=== PATIENT | male | born 1995 | race Caucasian/White ===

== ENCOUNTER 2018-03-29 15:06 | Inpatient (IN) | payer MEDICAID ==
[~2018-03-29] VITALS: Ht 165.1 cm; Wt 63.5 kg
[2018-03-29] MEDS ORDERED: KETOROLAC TROMETHAMINE INJ 30 MG/ML VIAL ONE (15:19)
[2018-03-29] MEDS ORDERED: KETOROLAC TROMETHAMINE INJ 30 MG/ML VIAL IV ONE (15:30)
[2018-03-29] MEDS ORDERED: IV NS 0.9% 1,000 ML BAG IV ONE (15:30)
[2018-03-29 15:32] LABS: BASOPHILS # (AUTO) 0.2 /CMM (0.0-0.2); BASOPHILS % (AUTO) 0.5 % (0.0-2.0); EOSINOPHILS % (AUTO) 0.1 % (0.0-6.0); HEMATOCRIT 43 % (39-51); HEMOGLOBIN 14.7 g/dL (13.5-17.5); LYMPHOCYTES % (AUTO) 3.4 % (20.0-44.0); MEAN CORPUSCULAR HGB CONC 34 g/dl (31.0-36.0); MEAN CORPUSCULAR VOLUME 93 fL (80-96); MONOCYTES # (AUTO) 1.9 /CMM (0.1-1.30); MONOCYTES % (AUTO) 6.3 % (2.0-12.0); NEUTROPHILS # (AUTO) 26.6 /CMM (1.8-8.9); NEUTROPHILS % (AUTO) 89.7 % (43.0-81.0); PLATELET COUNT (AUTO) 351 /CMM (150-450); RED BLOOD CELL COUNT(AUTO) 4.65 MIL/uL (4.5-6.0); WHITE BLOOD COUNT (AUTO) 29.6 K/uL (4.3-11.0)
[2018-03-29 15:48] LABS: ALBUMIN 3.3 g/dL (3.4-5.0); BILIRUBIN,DIRECT 0.1 mg/dL (0.0-0.2); BILIRUBIN,TOTAL 0.5 mg/dL (0.2-1.0); CALCIUM, SERUM 8.8 mg/dL (8.5-10.1); POTASSIUM 4.1 mmol/L (3.5-5.1); TOTAL PROTEIN, SERUM 7.8 g/dL (6.4-8.2)
[2018-03-29] MEDS ORDERED: PIPERACILLIN /TAZOBACTAM 3.375 G in IV D5W 50 ML IV ONE (16:00)
[2018-03-29] MEDS ORDERED: IOHEXOL-300 100 ML VIAL IV ONE (16:08)
[2018-03-29] MEDS ORDERED: IV NS 0.9% 250 ML IV ONE (16:08)
--- NOTE | 2018-03-29 16:11 | NUR ---
TODD FROM THE STREETS FOR RLQ ABDOMINAL PAIN SINCE THIS AM. PT AAOX4, VSS. DENIES N/V/D @ THIS TIME. PT SEEN & EVAL'D BY DR. HOGAN. MEDICATED FOR PAIN & WILL CONT TO MONITOR.
--- NOTE | 2018-03-29 17:00 | NUR ---
PT BACK FROM CT. STARTED IV ABX, PT ELZA WELL. PT STABLE, NAD NOTED @ THIS TIME.
[2018-03-29] MEDS ORDERED: Z GUARD REMEDY 2 OZ OINT TP PRN (18:00)
[2018-03-29] MEDS ORDERED: PIPERACILLIN /TAZOBACTAM 4.5 G in IV D5W 50 ML IV SCH (18:00)
[2018-03-29] MEDS ORDERED: MAGNESIUM HYDROXIDE 30 ML UDC PO PRN (18:00)
[2018-03-29] MEDS ORDERED: MAG HYDROX/AL HYDROX/SIMETH 30 ML UDC PO PRN (18:00)
[2018-03-29] MEDS ORDERED: ONDANSETRON HCL/PF 4 MG/2 ML VIAL IVP PRN (18:00)
[2018-03-29] MEDS ORDERED: ZOLPIDEM TARTRATE 5 MG TABLET PO PRN (18:00)
[2018-03-29 18:12] LABS: APPEARANCE,URINE Slightly Cloudy (CLEAR); BILIRUBIN,URINE Negative (NEGATIVE); BLOOD, URINE Trace-intact Ery/uL (NEGATIVE); COLOR,URINE Yellow (YELLOW); KETONES,URINE Negative (NEGATIVE); LEUKOCYTE ESTERASE ,URINE Trace (NEGATIVE); NITRITE, URINE Negative (NEGATIVE); PH,URINE 8.5 (5.0-8.0); PROTEIN,URINE 30 mg/dl (NEGATIVE); UGLUCOSE Negative (NEGATIVE)
--- NOTE | 2018-03-29 18:14 | NUR ---
Dr. Rom Barrientos [phone] CALLED
[2018-03-29 18:24] LABS: BACTERIA,URINE Rare /HPF (None Seen); RBC,URINE 0-2 /HPF (0-2); SQUAMOUS EPITHELIAL CELL,UR Few /HPF (None Seen); WBC,URINE TOO NUMEROUS TO COUN /HPF (0-3)
--- NOTE | 2018-03-29 18:50 | NUR ---
ARCH PAD CEMENTER NOTE RECEIVED REPORT FROM SHRUTHI ITM. PATIENT ARRIVED VIA WHEELCHAIR. PATIENT AMBULATORY WITH STEADY GAIT. NO BELONGINGS WITH PATIENT. MOTHER AT BEDSIDE. IV ON LEFT AC 20G INTACT AND PATENT NO REDNESS OR SWELLING NOTED. ABLE TO COMMUNICATE NEEDS. NO KNOWN ALLERGIES. FULL CODE NO ISOLATION. CALL LIGHT WITHIN REACH. MRSA OBTAINED IN ER. NO SIN ISSUES PRESENT AT THIS TIME. WILL ENDORSE TO CLINICAL AIDE NURSE FOR WOODROW
[2018-03-29 19:15] VITALS: BP 109/69
--- NOTE | 2018-03-29 19:15 | NUR ---
RN MS ADMITTING OPENING NOTES RECEIVED PATIENT IN BED, AWAKE ALERT AND ORIENTED X3, ABLE TO MAKE SIMPLE NEEDS KNOWN, APPEARS SLEEPY BUT EASILY AROUSABLE, RESPIRATIONS EVEN AND UNLABORED WITH EQUAL RISE AND FALL OF CHEST, LEFT IV AC SITE #20 G INTACT AND PATENT, NO REDNESS, NO INFILTRATION PRESENT, SAFETY PRECAUTIONS IN PLACE, LOW BED AND LOCKED, BED ALARM IN PLACE, TOILETING OFFERED, PATIENT IS NPO AT THIS TIME, ORIENTED TO STAFF AND CALL LIGHT AND KEPT WITHIN REACH, ALL NEEDS ATTENDED AT THIS TIME, WILL CONTINUE TO MONITOR.
[2018-03-29] MEDS: HYDROCODONE/APAP 5/325MG 1 EACH TABLET PO PRN (19:43)
--- NOTE | 2018-03-29 19:43 | NUR ---
SHRUTHI MS NOTES PATIENT COMPLAINT OF PAIN TO LEFT GROIN AREA,08/05 REQUESTING FOR PAIN MEDICATION VITAL SIGNS TAKEN 109/69,87,16,99% RA NORCO 5-325MG WILL CONTINUE TO MONITOR. Addendum: 03/29/18 at 2228 by JONES LOBO RN NORCO PRN WAS GIVEN
[2018-03-29 20:00] VITALS: BP 109/69
[2018-03-29] MEDS: IV NS 0.9% 1,000 ML IV PRN (20:04)
[2018-03-29] MEDS: PIPERACILLIN /TAZOBACTAM 3.375 G in IV D5W 100 ML IV SCH (20:06)
[2018-03-29] MEDS: ACETAMINOPHEN 325 MG TABLET PO PRN (20:54)
--- NOTE | 2018-03-29 20:54 | NUR ---
RN MS NOTES NOTED PATIENT WITH FEVER OF 100.8 TYLENOL PRN GIVEN ORDERED, COOLING MEASURES PROVIDED WILL CONTINUE TO MONITOR FOR EFFECTIVENESS.
--- NOTE | 2018-03-29 21:30 | NUR ---
RN MS NOTES SEEN AND EVALUATED BY WITH RECOMMENDATION FOR UROLOGIST CASE.
--- NOTE | 2018-03-29 21:47 | NUR ---
RN MS NOTES RECEIVED CALL FROM DR. EDOUARD WITH NEW ORDER FOR IV LEVAQUIN 500MG DAILY 1ST DOSE STAT MADE AWARE ZOSYN WILL INFUSE FOR 4 HOURS OKAY TO START LEVAQUIN AFTER. MADE AWARE OF FEVER OF 100.8 WITH TYLENOL GIVEN PER UROLOGIST WAS CALLED FOR PATIENT TO BE SEEN.
[2018-03-29] MEDS ORDERED: LEVOFLOXACIN 500 MG /D5W 100ML 500 MG in PREMIX 1 EA IV SCH (22:00)
--- NOTE | 2018-03-29 22:00 | NUR ---
RN MS NOTES SEEN BY UROLOGIST DR. ROBERTS WITH NEW ORDERS FOR TORADOL PER MD NO SURGERY NEEDED WILL FOLLOW ORDERED
[2018-03-29] MEDS: KETOROLAC TROMETHAMINE INJ 30 MG/ML VIAL IV SCH (23:00)
[2018-03-29] MEDS ORDERED: LEVOFLOXACIN 500 MG /D5W 100ML 100 ML IV ONE (23:10)
[2018-03-30] MEDS: LEVOFLOXACIN 500 MG /D5W 100ML 500 MG in PREMIX 1 EA IV SCH (00:18)
[2018-03-30] MEDS: PIPERACILLIN /TAZOBACTAM 3.375 G in IV D5W 100 ML IV SCH ×3 (04:30→20:57)
[2018-03-30] MEDS: KETOROLAC TROMETHAMINE INJ 30 MG/ML VIAL IV SCH ×4 (04:30→21:08)
--- NOTE | 2018-03-30 06:32 | NUR ---
SHRUTHI MS CLOSING NOTES PATIENT IN BED, AWAKE ALERT AND ORIENTED X3, ABLE TO MAKE SIMPLE NEEDS KNOWN, APPEARS SLEEPY BUT EASILY AROUSABLE, RESPIRATIONS EVEN AND UNLABORED WITH EQUAL RISE AND FALL OF CHEST, LEFT IV AC SITE #20 G INTACT AND PATENT, NO REDNESS, NO INFILTRATION PRESENT,ANTIBIOTIC RUNNING FOR 4 HOURS ORDERED. SAFETY PRECAUTIONS IN PLACE, LOW BED AND LOCKED, BED ALARM IN PLACE, TOILETING OFFERED, URINAL OFFERED, PATIENT IS NPO AT THIS TIME, CALL LIGHT KEPT WITHIN REACH, ALL NEEDS ATTENDED AT THIS TIME, WILL CONTINUE TO MONITOR AND ENDORSE TO NEXT SHIFT. Addendum: 03/30/18 at 0636 by JONES LOBO RN PATIENT IS AFEBRILE AT THIS TIME, 98.1
[2018-03-30 06:49] LABS: BASOPHILS # (AUTO) 0.2 /CMM (0.0-0.2); BASOPHILS % (AUTO) 0.5 % (0.0-2.0); EOSINOPHILS % (AUTO) 0.1 % (0.0-6.0); HEMATOCRIT 42 % (39-51); HEMOGLOBIN 13.8 g/dL (13.5-17.5); LYMPHOCYTES # (AUTO) 1.4 /CMM (0.8-4.8); LYMPHOCYTES % (AUTO) 3.9 % (20.0-44.0); MEAN CORPUSCULAR HGB CONC 33 g/dl (31.0-36.0); MEAN CORPUSCULAR VOLUME 94 fL (80-96); MONOCYTES # (AUTO) 2.6 /CMM (0.1-1.30); MONOCYTES % (AUTO) 7.2 % (2.0-12.0); NEUTROPHILS # (AUTO) 31.8 /CMM (1.8-8.9); NEUTROPHILS % (AUTO) 88.3 % (43.0-81.0); PLATELET COUNT (AUTO) 312 /CMM (150-450); RED BLOOD CELL COUNT(AUTO) 4.45 MIL/uL (4.5-6.0)
[2018-03-30 07:08] LABS: ALBUMIN 2.7 g/dL (3.4-5.0); BILIRUBIN,TOTAL 1.1 mg/dL (0.2-1.0); CALCIUM, SERUM 8.4 mg/dL (8.5-10.1); CREATININE 0.8 mg/dL (0.6-1.3); MAGNESIUM 1.6 mg/dL (1.8-2.4); PHOSPHORUS 3.8 mg/dL (2.5-4.9); POTASSIUM 3.7 mmol/L (3.5-5.1); TOTAL PROTEIN, SERUM 7.3 g/dL (6.4-8.2)
--- NOTE | 2018-03-30 07:18 | NUR ---
rn ms notes received call from lab wbc 36 patient is on antibiotics at this time. will edorse to next shift.
[2018-03-30 07:55] LABS: LYMPHOCYTES % (MANUAL) 4 % (16-48); MONOCYTES % (MANUAL) 9 % (0-11.0); NEUTROPHILS % (MANUAL) 87 (42-76)
[2018-03-30 07:59] VITALS: BP 117/67
--- NOTE | 2018-03-30 08:00 | NUR ---
RN NOTES RECEIVED PATIENT IN THE BED 22 Y/OLD MALE ON NPO. PATIENT A/O X3/4 RESTING. PATIENT HAS NO ACUTE RESPIRATORY DISTRESS. ENCOURAGED TO EXPRESS FEELINGS AND CONCERNS. PATIENT REFUSED PAIN AT THIS TIME. V/S TAKEN STABLE. PATIENT TURN AND REPOSTION SELF IN THE BED. PATIENT HAS SWOLLEN SCROTUM, NO REDNESS. INFUSING NS AT LEFT AC AT 125 ML/HR INTACT. PATIENT WAS USING URINAL. CALL LIGHT WITHIN TO REACH. SAFETY PRECAUTION MAINTAINED ALL THE TIME.
[2018-03-30 08:19] VITALS: BP 117/67
--- NOTE | 2018-03-30 08:20 | NUR ---
WOUND CARE CONSULT: PT PRESENTS CONTINENT AND INDEPENDENT WITH BED MOBILITY. DRY SKIN NOTED TO PLANTAR FEET. WILL SEE PRN.
--- NOTE | 2018-03-30 10:00 | NUR ---
RN NOTES PATIENT WITH PT WALKING IN THE HALLWAY STABLE.
[2018-03-30] MEDS: Magnesium 1GM/D5W 100ML PREMIX 100 ML IV SCH ×2 (11:14→12:03)
--- NOTE | 2018-03-30 11:33 | NUR ---
Social service consult requested by Dr. Barclay for homelessness. Pt. is a 22 year old male who was admitted to [facility] for abdominal pain. SW met with pt. bedside. Pt. was lying down with his eyes closed. SW had to prompt pt. several times before he opened his eyes and spoke to SW. Pt. states, he is homeless by choice. Pt. states he has been homeless for 2 months. Pt. alternates in between living on the streets and living in his mom's house in [place]. Pt's emergency contact is his mother Zeenat Dutta . Pt. informed SW that his mother is aware of his hospitalization. Pt. is a methamphetamine user. Pt. last used methamphetamines a day ago. Pt. uses methamphetamines a couple times per week. Pt. also smokes marijuana and last used marijuana 2 days ago. [facility] offered pt. assisted placement, however pt. declined. Pt. is willing to accept winter assisted placement referral. SW to give pt. winter assisted referral prior to discharge. No other social service needs are required at this time. SW is available if need. [facility] updated SHRUTHI Chang regarding pt's discharge plan.
[2018-03-30] MEDS: HYDROCODONE/APAP 5/325MG 1 EACH TABLET PO PRN (12:05)
--- NOTE | 2018-03-30 12:05 | NUR ---
RN NOTES ADMINISTERED NARCO 5/325 MG PO PRN FOR PAIN 11/04 PER PATIENT REQUEST FOR PERINEAL AREA, CALL LIGHT WITHIN TO REACH, SAFETY PRECAUTION MAINTAINED ALL THE TIME.
--- NOTE | 2018-03-30 13:05 | NUR ---
RN NOTES ADMINISTERED NARCO 5/325 MG PO PRN FOR SCROTUM PAIN 11/04 PER PATIENT REQUEST, V/S TAKEN STABLE BP-107/66, P-96, ENCOURAGED TO INCREASE FLUID INTAKE. CONTINUED MONITORING.
--- NOTE | 2018-03-30 14:48 | NUR ---
[facility] met with pt. bedside and gave him list of [id number] [facility]. Homeless patient waiver form to be signed by pt. upon discharge.
[2018-03-30 16:27] VITALS: BP 107/66
[2018-03-30] MEDS ORDERED: FEE PK DOSING 1 MIN EA MC ONE (16:46)
[2018-03-30] MEDS: ENSURE ENLIVE 237 ML LIQUID (VANILLA) PO SCH ×2 (17:24→17:51)
[2018-03-30] MEDS: VANCOMYCIN 1.5 GM in IV D5W 500 ML IV SCH (17:24)
--- NOTE | 2018-03-30 18:30 | NUR ---
RN NOTES PATIENT STABLE EATING. V/S STABLE, MEDICATION WERE ADMINISTERED FOR PAIN EFFECTIVE. MOTHER NEXT TO THE BED. PATIENT TURN AND REPOSTION IN THE BED, USING URINAL. CALL LIGHT WITHIN TO REACH. SAFETY PRECAUTION MAINTAINED ALL THE TIME. ENDORSED ONCOMING NURSE FOR PLAN OF CARE.
--- NOTE | 2018-03-30 19:05 | NUR ---
RN MS OPENING NOTES RECEIVED PATIENT IN BED, AWAKE ALERT AND ORIENTED X3, ABLE TO MAKE SIMPLE NEEDS KNOWN, APPEARS SLEEPY BUT EASILY AROUSABLE, RESPIRATIONS EVEN AND UNLABORED WITH EQUAL RISE AND FALL OF CHEST, LEFT IV AC SITE #20 G INTACT AND PATENT IVF RUNNING ORDERED , NO REDNESS, NO INFILTRATION PRESENT,ASKED PATIENT IF WANTED FLU VACCINE REFUSED. SAFETY PRECAUTIONS IN PLACE, LOW BED AND LOCKED, BED ALARM IN PLACE, TOILETING OFFERED, URINAL OFFERED, FLUIDS OFFERED, CALL LIGHT KEPT WITHIN REACH, ORIENTED TO STAFF ,ALL NEEDS ATTENDED AT THIS TIME, BED ALARM IN PLACE BED LOW AND LOCKED ,WILL CONTINUE TO MONITOR.
[2018-03-30 20:00] VITALS: BP 109/58
[2018-03-30 20:54] VITALS: BP 109/58
--- NOTE | 2018-03-30 21:49 | NUR ---
RN NOTES SEEN AND EVALUATED BY DR. ROBERTS UROLOGIST NOW NEW ORDERS AT THIS TIME, [place] CLEARED FOR DISCHARGE WITH ATB , NO SURGICAL INTERVENTION NEEDED AT THIS TIME .
[2018-03-31] MEDS: LEVOFLOXACIN 500 MG /D5W 100ML 500 MG in PREMIX 1 EA IV SCH (01:03)
[2018-03-31] MEDS: VANCOMYCIN 1.5 GM in IV D5W 500 ML IV SCH ×2 (02:51→09:00)
--- NOTE | 2018-03-31 02:52 | NUR ---
RN MS NOTES will run VANCOMYCIN atb at this time, unable to give as schedule due to levaquin scheduled at the same time and to be ran for 1hr and 30 mins
[2018-03-31] MEDS: KETOROLAC TROMETHAMINE INJ 30 MG/ML VIAL IV SCH ×4 (04:00→22:21)
--- NOTE | 2018-03-31 04:00 | NUR ---
rn ms notes patient denies any pain or discomfort at this time
[2018-03-31] MEDS: PIPERACILLIN /TAZOBACTAM 3.375 G in IV D5W 100 ML IV SCH ×3 (05:03→21:30)
--- NOTE | 2018-03-31 06:49 | NUR ---
RN MS CLOSING NOTES PATIENT IN BED, ALERT AND ORIENTED X3, ABLE TO MAKE SIMPLE NEEDS KNOWN, APPEARS SLEEPY BUT EASILY AROUSABLE, RESPIRATIONS EVEN AND UNLABORED WITH EQUAL RISE AND FALL OF CHEST, LEFT IV AC SITE #20 G INTACT AND PATENT IVF RUNNING ORDERED , NO REDNESS, NO INFILTRATION PRESENT,SAFETY PRECAUTIONS IN PLACE, LOW BED AND LOCKED, BED ALARM IN PLACE, TOILETING OFFERED, URINAL OFFERED, FLUIDS OFFERED, CALL LIGHT KEPT WITHIN REACH, ZOSYN ATB IV IS CURRENTLY RUNNING AT THIS TIME TO RUN FOR 4 HOURS FROM START TIME,ALL NEEDS ATTENDED AT THIS TIME, BED ALARM IN PLACE BED LOW AND LOCKED ,WILL CONTINUE TO MONITOR AND ENDORSE TO NEXT SHIFT , NO FEVER THROUGHOUT SHIFT.
--- NOTE | 2018-03-31 07:12 | NUR ---
RN MS NOTES PER LAB WILL RETURN FOR LAB VANCO TROUGH AT 0800
[2018-03-31 08:00] VITALS: BP 120/67
--- NOTE | 2018-03-31 08:00 | NUR ---
MS RN NOTES RECEIVED PATIENT IN STABLE CONDITION, IN NO APPARENT DISTRESS, BESIDE RAILS ARE UP X2, BED IS LOCKED AND IN LOWEST POSITION, IV SITE IS PATENT AND SECURE, WILL CONTINUE TO MONITOR PATIENT. CHANGED PRIMARY NS IV TUBING.
[2018-03-31 08:13] LABS: BASOPHILS # (AUTO) 0.1 /CMM (0.0-0.2); BASOPHILS % (AUTO) 0.3 % (0.0-2.0); EOSINOPHILS % (AUTO) 0.3 % (0.0-6.0); HEMATOCRIT 39 % (39-51); HEMOGLOBIN 12.9 g/dL (13.5-17.5); LYMPHOCYTES % (AUTO) 2.8 % (20.0-44.0); MEAN CORPUSCULAR HGB CONC 33 g/dl (31.0-36.0); MEAN CORPUSCULAR VOLUME 94 fL (80-96); MONOCYTES # (AUTO) 1.9 /CMM (0.1-1.30); MONOCYTES % (AUTO) 5.6 % (2.0-12.0); NEUTROPHILS # (AUTO) 30.6 /CMM (1.8-8.9); PLATELET COUNT (AUTO) 297 /CMM (150-450); RED BLOOD CELL COUNT(AUTO) 4.13 MIL/uL (4.5-6.0)
[2018-03-31 08:25] LABS: CALCIUM, SERUM 8.3 mg/dL (8.5-10.1); CREATININE 1.4 mg/dL (0.6-1.3); MAGNESIUM 1.8 mg/dL (1.8-2.4); PHOSPHORUS 3.1 mg/dL (2.5-4.9); POTASSIUM 3.8 mmol/L (3.5-5.1)
[2018-03-31 08:28] LABS: WHITE BLOOD COUNT (AUTO) 33.6 K/uL (4.3-11.0)
[2018-03-31] MEDS: IV NS 0.9% 1,000 ML IV PRN (08:56)
--- NOTE | 2018-03-31 09:15 | NUR ---
WITHHELD VANCOMYCIN ADMINISTRATION THIS MORNING 0900 03/31/18 DUE TO VANCO THROUGH LEVEL 30.
[2018-03-31] MEDS: ENSURE ENLIVE 237 ML LIQUID (VANILLA) PO SCH ×3 (09:19→16:21)
[2018-03-31 11:01] LABS: BAND % (MANUAL) 3 % (0.0-5.0); LYMPHOCYTES % (MANUAL) 3 % (16-48); METAMYELOCYTES % 2 % (0-0); MONOCYTES % (MANUAL) 4 % (0-11.0); MYELOCYTES % 2 % (0-0); NEUTROPHILS % (MANUAL) 86 (42-76)
[2018-03-31 16:00] VITALS: BP 117/64
[2018-03-31] MEDS: LACTOBACILLUS RHAMNOSUS GG 1 EACH CAP.SPRINK PO SCH (16:20)
--- NOTE | 2018-03-31 18:27 | NUR ---
RN CLOSING NOTES PATIENT IS IN STABLE CONDITION, NO APPARENT DISTRESS, BED SIDE RAILS ARE UP X2, BED IS LOCKED AND LOWERED, CALL LIGHT IS WITHIN REACH, ALL NEEDS WERE MET, IV LINE IS INTACT AND PATENT, ENDORSING CARE TO SENIOR TECHNICAL BUSINESS ANALYST NURSE FOR CONTINUATION OF CARE.
--- NOTE | 2018-03-31 19:45 | NUR ---
RN OPENING NOTES RECEIVED REPORT FROM DAYSHIFT RN SILVIO. FOUND Pt ASLEEP, RESTING IN BED; MOTHER VISITING AT BEDSIDE. NO S/S OF ACUTE DISTRESS OR SOB NOTED. Pt IS A/OX3, VERBAL, ABLE TO MAKE NEEDS KNOWN. IV ACCESS ON LAC #20G, IVF NS @125ML/HR. SAFETY MEASURES IN PLACE. BED LOW, LOCKED, HOB ELEVATED, SIDE RAILS UP, CALL LIGHT AND BEDSIDE TABLE WITHIN REACH. WILL CONTINUE TO MONITOR Pt THROUGHOUT THE NIGHT FOR SAFETY.
[2018-03-31 19:51] VITALS: BP 108/52
[2018-03-31 20:00] VITALS: BP 108/52
[2018-03-31] MEDS: VANCOMYCIN HCL 0.75 GM in IV D5W 250 ML IV SCH (20:04)
[2018-03-31] MEDS ORDERED: VANCOMYCIN 1 GM in IV D5W 250 ML IV SCH (21:00)
[2018-04-01] MEDS: LEVOFLOXACIN 500 MG /D5W 100ML 500 MG in PREMIX 1 EA IV SCH (00:59)
[2018-04-01] MEDS: VANCOMYCIN HCL 0.75 GM in IV D5W 250 ML IV SCH (04:04)
[2018-04-01] MEDS ORDERED: KETOROLAC TROMETHAMINE INJ 30 MG/ML VIAL ONE (05:05)
[2018-04-01] MEDS: PIPERACILLIN /TAZOBACTAM 3.375 G in IV D5W 100 ML IV SCH ×3 (05:34→20:32)
[2018-04-01] MEDS: KETOROLAC TROMETHAMINE INJ 30 MG/ML VIAL IV SCH (05:40)
--- NOTE | 2018-04-01 06:47 | NUR ---
RN CLOSING NOTES NO SIGNIFICANT CHANGES IN Pt's CONDITION. Pt REMAINS STABLE PER BASELINE. Pt IS ASLEEP AT THIS TIME. RESPIRATIONS EVEN AND UNLABORED. NO S/S OF ACUTE DISTRESS OR SOB NOTED DURING THE NIGHT. ALL NEEDS MET AND ATTENDED TO. ALL ORDERED MEDS GIVEN. SAFETY MEASURES IN PLACE. WILL ENDORSE TO DAYSHIFT RN FOR Pt's WOODROW.
[2018-04-01 07:14] LABS: BASOPHILS # (AUTO) 0.1 /CMM (0.0-0.2); BASOPHILS % (AUTO) 0.2 % (0.0-2.0); EOSINOPHILS % (AUTO) 0.2 % (0.0-6.0); HEMATOCRIT 38 % (39-51); HEMOGLOBIN 12.6 g/dL (13.5-17.5); LYMPHOCYTES # (AUTO) 1.1 /CMM (0.8-4.8); LYMPHOCYTES % (AUTO) 3.3 % (20.0-44.0); MEAN CORPUSCULAR HGB CONC 33 g/dl (31.0-36.0); MEAN CORPUSCULAR VOLUME 94 fL (80-96); MONOCYTES # (AUTO) 2.3 /CMM (0.1-1.30); MONOCYTES % (AUTO) 7.1 % (2.0-12.0); NEUTROPHILS # (AUTO) 28.2 /CMM (1.8-8.9); NEUTROPHILS % (AUTO) 89.2 % (43.0-81.0); PLATELET COUNT (AUTO) 316 /CMM (150-450); RED BLOOD CELL COUNT(AUTO) 4.04 MIL/uL (4.5-6.0)
--- NOTE | 2018-04-01 07:15 | NUR ---
RN OPENING NOTES RECEIVED PATIENT IN BED RESTING. A/OX4, ABLE TO MAKE NEEDS KNOWN. NO ACUTE DISTRESS, NO SOB. DENIED PAIN OR DISCOMFORT AT THIS TIME. IV ACCESS INTACT AND PATENT. KEPT PATIENT SAFE AND COMFORTABLE. BED IN LOW/LOCKED POSITION, SIDERAILS UPX2, CALL LIGHT IN REACH. WILL CONTINUE TO MONITOR ACCORDINGLY.
[2018-04-01 07:20] LABS: CALCIUM, SERUM 8.5 mg/dL (8.5-10.1); CREATININE 2.1 mg/dL (0.6-1.3); POTASSIUM 3.9 mmol/L (3.5-5.1)
[2018-04-01 07:22] LABS: WHITE BLOOD COUNT (AUTO) 31.6 K/uL (4.3-11.0)
[2018-04-01 08:00] VITALS: BP 101/63
[2018-04-01] MEDS: LACTOBACILLUS RHAMNOSUS GG 1 EACH CAP.SPRINK PO SCH ×2 (08:51→17:23)
[2018-04-01] MEDS: ENSURE ENLIVE 237 ML LIQUID (VANILLA) PO SCH ×3 (08:52→17:23)
[2018-04-01 09:19] LABS: LYMPHOCYTES % (MANUAL) 1 % (16-48); MONOCYTES % (MANUAL) 4 % (0-11.0); NEUTROPHILS % (MANUAL) 95 (42-76)
[2018-04-01] MEDS: IV NS 0.9% 1,000 ML IV PRN (13:56)
[2018-04-01 16:00] VITALS: BP 136/57
--- NOTE | 2018-04-01 19:30 | NUR ---
RN CLOSING NOTES PATIENT IN STABLE CONDITION. ALL NEEDS ATTENDED AND PROVIDED. ALL DUE MEDICATIONS ADMINISTERED ORDERED. KEPT PATIENT SAFE AND COMFORTABLE. BED IN LOW/LOCKED POSITION, SIDERAILS UPX2, CALL LLIGHTG IN REACH. ENDORSED TO SHRUTHI PAIGE FOR WOODROW.
--- NOTE | 2018-04-01 19:58 | NUR ---
RN OPENING NOTES RECEIVED REPORT FROM DAYSHIFT RN EARNEST. FOUND Pt ASLEEP, EASILY AWAKENED BY NAME. NO S/S OF ACUTE DISTRESS OR SOB NOTED. RESPIRATIONS EVEN AND UNLABORED. Pt IS A/OX3, VERBAL, ABLE TO MAKE NEEDS KNOWN. IV ACCESS ON LAC #20G. SAFETY MEASURES IN PLACE. BED LOW, LOCKED, HOB ELEVATED, SIDE RAILS UP, CALL LIGHT AND BEDSIDE TABLE WITHIN REACH. WILL CONTINUE TO MONITOR Pt THROUGHOUT THE NIGHT FOR SAFETY.
[2018-04-01 20:00] VITALS: BP 100/49
[2018-04-01] MEDS: ACETAMINOPHEN 325 MG TABLET PO PRN (20:32)
--- NOTE | 2018-04-01 20:50 | NUR ---
RN NOTES ADMINISTERED TYLENOL 650MG DUE TO TEMP OF 100.2F. ALSO APPLIED ICE PACKS UNDER Pt's UNDERARMS FOR COOLING MEASURES. WILL RECHECK TEMP.
--- NOTE | 2018-04-01 21:53 | NUR ---
RN NOTES RECHECKED VS: BP 101/58, HR 91, T 99.4F, R 18
[2018-04-01 21:54] VITALS: BP 101/58
[2018-04-02] MEDS: LEVOFLOXACIN 500 MG /D5W 100ML 500 MG in PREMIX 1 EA IV SCH (00:37)
[2018-04-02] MEDS: PIPERACILLIN /TAZOBACTAM 3.375 G in IV D5W 100 ML IV SCH ×3 (04:37→20:58)
--- NOTE | 2018-04-02 04:54 | NUR ---
RN NOTES RECHECKED TEMP: ORAL 97.8F
[2018-04-02 06:40] LABS: CALCIUM, SERUM 8.5 mg/dL (8.5-10.1); CREATININE 2.6 mg/dL (0.6-1.3); POTASSIUM 4.2 mmol/L (3.5-5.1)
--- NOTE | 2018-04-02 07:00 | NUR ---
MSRN. PT RECEIVED A&0X3, RESTING IN BED AND EASILY AWOKEN BY NAME. PT TOLERATING ROOM AIR WITHOUT DISTRESS, DENIES PAIN. 1ST CONTACT WITH PT BUT REMAINS WITH SCROTAL EDEMA PRESENT. PT WITH IVC INTACT AND OPERATIONAL. PT BRIEFED ON POC AND IS WITHOUT CONCERN OR COMPLAINT AT THIS TIME. BED IN LOWEST LOCKED POSITION WITH HANDRAILSX2 AND CALL DANIELLE WITHIN REACH. WILL CONTINUE POC.
[2018-04-02 08:00] VITALS: BP 131/61
[2018-04-02] MEDS: LACTOBACILLUS RHAMNOSUS GG 1 EACH CAP.SPRINK PO SCH ×2 (08:13→16:11)
[2018-04-02] MEDS: ENSURE ENLIVE 237 ML LIQUID (VANILLA) PO SCH ×3 (08:14→17:00)
[2018-04-02 11:44] LABS: BASOPHILS # (AUTO) 0.1 /CMM (0.0-0.2); BASOPHILS % (AUTO) 0.5 % (0.0-2.0); EOSINOPHILS % (AUTO) 0.3 % (0.0-6.0); HEMATOCRIT 38 % (39-51); HEMOGLOBIN 12.5 g/dL (13.5-17.5); LYMPHOCYTES % (AUTO) 3.7 % (20.0-44.0); MEAN CORPUSCULAR HGB CONC 33 g/dl (31.0-36.0); MEAN CORPUSCULAR VOLUME 95 fL (80-96); MONOCYTES # (AUTO) 2.2 /CMM (0.1-1.30); MONOCYTES % (AUTO) 8.3 % (2.0-12.0); NEUTROPHILS # (AUTO) 23.5 /CMM (1.8-8.9); NEUTROPHILS % (AUTO) 87.2 % (43.0-81.0); PLATELET COUNT (AUTO) 352 /CMM (150-450); RED BLOOD CELL COUNT(AUTO) 4.03 MIL/uL (4.5-6.0)
[2018-04-02] MEDS: IV NS 0.9% 1,000 ML IV PRN (12:34)
[2018-04-02 12:46] LABS: BAND % (MANUAL) 1 % (0.0-5.0); LYMPHOCYTES % (MANUAL) 5 % (16-48); MONOCYTES % (MANUAL) 7 % (0-11.0); NEUTROPHILS % (MANUAL) 87 (42-76)
[2018-04-02 16:00] VITALS: BP 114/63
[2018-04-02] MEDS: ACETAMINOPHEN 325 MG TABLET PO PRN (16:11)
--- NOTE | 2018-04-02 18:46 | NUR ---
MSRN. PT REMAINS A&0X3, RESTING IN BED. PT TOLERATING ROOM AIR WITHOUT DISTRESS, DENIES PAIN. SCROTUM REMAINS WITH MINOR EDEMA PRESENT. PT A FEBRILE A THIS TIME POST TYLENOL. PT WITH NEW IVC INTACT AND OPERATIONAL WITH IVF AND IVAB PER RX. PT REMAINS WITHOUT CONCERN OR COMPLAINT AT THIS TIME. BED IN LOWEST LOCKED POSITION WITH HANDRAILSX2 AND CALL DANIELLE WITHIN REACH. WILL ENDORSE TO NIGHT NURSE AT BEDSIDE FOR WOODROW.
[2018-04-02 20:00] VITALS: BP 111/54
[2018-04-03] MEDS: PIPERACILLIN /TAZOBACTAM 3.375 G in IV D5W 100 ML IV SCH ×3 (04:47→21:15)
--- NOTE | 2018-04-03 06:28 | NUR ---
MS RN NOTES AWAKE & RESPONSIVE. NOT IN ANY DISTRESS. NO SOB NOTED. DENIES ANY PAIN OR DISCOMFORT AT THIS TIME. WITH IVF INFUSING WELL. MONITORED ACCORDINGLY. CALL LIGHT WITHIN REACH. BED IN LOWEST POSITION. SR UP X 2 FOR SAFETY. WILL ENDORSE TO NEXT SHIFT.
[2018-04-03 07:05] LABS: BASOPHILS # (AUTO) 0.1 /CMM (0.0-0.2); BASOPHILS % (AUTO) 0.3 % (0.0-2.0); EOSINOPHILS % (AUTO) 0.3 % (0.0-6.0); HEMATOCRIT 37 % (39-51); HEMOGLOBIN 12.3 g/dL (13.5-17.5); LYMPHOCYTES % (AUTO) 4.7 % (20.0-44.0); MEAN CORPUSCULAR HGB CONC 33 g/dl (31.0-36.0); MEAN CORPUSCULAR VOLUME 94 fL (80-96); MONOCYTES # (AUTO) 2.4 /CMM (0.1-1.30); NEUTROPHILS # (AUTO) 17.9 /CMM (1.8-8.9); NEUTROPHILS % (AUTO) 83.7 % (43.0-81.0); PLATELET COUNT (AUTO) 371 /CMM (150-450); RED BLOOD CELL COUNT(AUTO) 3.99 MIL/uL (4.5-6.0); WHITE BLOOD COUNT (AUTO) 21.4 K/uL (4.3-11.0)
--- NOTE | 2018-04-03 07:15 | NUR ---
MSRN. PT RECEIVED A&0X3, RESTING IN BED WITH T.V. PT TOLERATING ROOM AIR WITHOUT DISTRESS, DENIES PAIN. 1ST CONTACT WITH PT BUT REMAINS WITH SCROTAL EDEMA PRESENT. PT WITH IVC INTACT AND OPERATIONAL. PT BRIEFED ON POC AND IS WITHOUT CONCERN OR COMPLAINT AT THIS TIME. BED IN LOWEST LOCKED POSITION WITH HANDRAILSX2 AND CALL DANIELLE WITHIN REACH. WILL CONTINUE POC.
[2018-04-03 07:22] LABS: CALCIUM, SERUM 8.6 mg/dL (8.5-10.1); CREATININE 2.4 mg/dL (0.6-1.3); POTASSIUM 4.7 mmol/L (3.5-5.1)
[2018-04-03 08:00] VITALS: BP 107/59
[2018-04-03] MEDS: LACTOBACILLUS RHAMNOSUS GG 1 EACH CAP.SPRINK PO SCH ×2 (08:53→16:50)
[2018-04-03] MEDS: ENSURE ENLIVE 237 ML LIQUID (VANILLA) PO SCH ×3 (08:56→17:08)
[2018-04-03] MEDS: IV NS 0.9% 1,000 ML IV PRN ×2 (12:36→21:25)
[2018-04-03 12:52] LABS: APPEARANCE,URINE CLEAR (CLEAR); BILIRUBIN,URINE NEGATIVE (NEGATIVE); BLOOD, URINE NEGATIVE Ery/uL (NEGATIVE); COLOR,URINE YELLOW (YELLOW); KETONES,URINE NEGATIVE (NEGATIVE); LEUKOCYTE ESTERASE ,URINE NEGATIVE (NEGATIVE); NITRITE, URINE NEGATIVE (NEGATIVE); PROTEIN,URINE TRACE mg/dl (NEGATIVE); UGLUCOSE NEGATIVE (NEGATIVE); UROBILINOGEN,URINE 0.2 EU/dL (0.2)
[2018-04-03 13:08] LABS: BACTERIA,URINE None seen /HPF (None Seen); RBC,URINE NONE SEEN /HPF (0-2); SQUAMOUS EPITHELIAL CELL,UR Few /HPF (None Seen); WBC,URINE 0-2 /HPF (0-3)
[2018-04-03 16:00] VITALS: BP 108/61
[2018-04-03] MEDS: ACETAMINOPHEN 325 MG TABLET PO PRN (16:50)
--- NOTE | 2018-04-03 18:06 | NUR ---
MSRN. PT TRANS TO 312-1. REMAINS A&0X3, RESTING IN BED WITH T.V. PT TOLERATING ROOM AIR WITHOUT DISTRESS, DENIES PAIN. PT REMAINS WITH SCROTAL EDEMA PRESENT. PT WITH IVC INTACT AND OPERATIONAL WITH IVF PER RX. PT REMAINS WITH A PENDING RESP CX, WILL ENDORSE TO NIGHT NURSE TO COLLECT WHEN PT CAN PROVIDE- CURRENTLY WITHOUT SPUTUM. ALL DAY NURSE DUTIES ATTENDED TO AND PT IS WITHOUT CONCERN OR COMPLAINT AT THIS TIME. WILL ENDORSE TO NIGHT NURSE AT BEDSIDE FOR WOODROW.
--- NOTE | 2018-04-03 19:30 | NUR ---
MSRN EYES CLOSED, LIMITED VERBAL. NO NEEDS MADE. PRESENT IVF INFUSING WELL. CONTINUED.
[2018-04-03 20:00] VITALS: BP 121/63
--- NOTE | 2018-04-03 21:00 | NUR ---
MSRN DUE MEDS GIVEN, REMAINS UNCHANGED
--- NOTE | 2018-04-03 23:43 | NUR ---
MSRN ASLEEP, IVF CONTINUED. CLOSELY WATCHED.
[2018-04-04] MEDS ORDERED: PIPERACILLIN /TAZOBACTAM 3.375 G VIAL IV ONE (05:06)
[2018-04-04] MEDS: PIPERACILLIN /TAZOBACTAM 3.375 G in IV D5W 100 ML IV SCH ×3 (05:11→20:36)
[2018-04-04] MEDS: IV NS 0.9% 1,000 ML IV PRN ×2 (05:43→15:51)
[2018-04-04 06:35] LABS: BASOPHILS # (AUTO) 0.1 /CMM (0.0-0.2); BASOPHILS % (AUTO) 0.4 % (0.0-2.0); EOSINOPHILS % (AUTO) 0.8 % (0.0-6.0); HEMATOCRIT 36 % (39-51); LYMPHOCYTES # (AUTO) 1.4 /CMM (0.8-4.8); LYMPHOCYTES % (AUTO) 7.6 % (20.0-44.0); MEAN CORPUSCULAR HGB CONC 34 g/dl (31.0-36.0); MEAN CORPUSCULAR VOLUME 94 fL (80-96); MONOCYTES # (AUTO) 2.2 /CMM (0.1-1.30); NEUTROPHILS # (AUTO) 14.3 /CMM (1.8-8.9); NEUTROPHILS % (AUTO) 79.2 % (43.0-81.0); PLATELET COUNT (AUTO) 389 /CMM (150-450); RED BLOOD CELL COUNT(AUTO) 3.82 MIL/uL (4.5-6.0)
[2018-04-04 06:51] LABS: CALCIUM, SERUM 8.2 mg/dL (8.5-10.1); POTASSIUM 4.8 mmol/L (3.5-5.1)
--- NOTE | 2018-04-04 07:00 | NUR ---
RN CLOSING NOTES RESTING IN BED. PT ALERT AND ORIENTED X3. NO COMPLAINTS OF PAIN, SOB OR DISTRESS OVERNIGHT. PT HAS A LEFT FA #18 INTACT AND PATENT. SAFETY PRECAUTIONS IN PLACE, BED IN LOWEST LOCKED POSITION, X2 SIDE RAILS UP AND CALL LIGHT WITHIN REACH. WILL ENDORSE TO DAY SHIFT NURSE FOR CONTINUITY OF CARE.
--- NOTE | 2018-04-04 07:15 | NUR ---
MS RN INITIAL NOTES Report received at bedside. Patient received in bed, sleeping comfortably, easily aroused. No facial grimacing or moaning noted. Not in any type of distress. Safety measures in place. Will continue to monitor and assess patient.
[2018-04-04 08:00] VITALS: BP 115/65
--- NOTE | 2018-04-04 08:34 | NUR ---
MS RN CLOSING NOTES Endorsed care to Wendy GambinoTammy
[2018-04-04 10:00] LABS: BAND % (MANUAL) 3 % (0.0-5.0); EOSINOPHILS % (MANUAL) 4 % (0-4); LYMPHOCYTES % (MANUAL) 4 % (16-48); MONOCYTES % (MANUAL) 13 % (0-11.0); MYELOCYTES % 1 % (0-0); NEUTROPHILS % (MANUAL) 75 (42-76)
[2018-04-04] MEDS: LACTOBACILLUS RHAMNOSUS GG 1 EACH CAP.SPRINK PO SCH ×2 (10:49→17:53)
[2018-04-04] MEDS: ENSURE ENLIVE 237 ML LIQUID (VANILLA) PO SCH ×3 (10:49→17:53)
--- NOTE | 2018-04-04 11:30 | NUR ---
sleeping most of day.
--- NOTE | 2018-04-04 13:30 | NUR ---
rn contacted lab regarding gonorrhea and chlamydia urine -report from agricultural labor camp manager that urine sent to outside lab.awaiting results.
[2018-04-04 15:07] VITALS: BP 128/68
[2018-04-04] MEDS: ACETAMINOPHEN 325 MG TABLET PO PRN (15:47)
--- NOTE | 2018-04-04 15:58 | NUR ---
given tylenol 650 mg po for temp 100.5.encouraged pt. regarding resp. culture.
--- NOTE | 2018-04-04 19:30 | NUR ---
MS RN OPENING NOTES RECEIVED PATIENT RESTING IN BED, FAMILY AT BED SIDE. PT ALERT AND ORIENTED X3. NO COMPLAINTS OF PAIN VERBALIZED AT THIS TIME, NO SOB OR DISTRESS NOTED. CONTINENT/BRP. NO FEVER NOTED AT THIS TIME. PT HAS IV ACCESS TO RIGHT FA #18, INTACT AND PATENT INFUSING WITH IVF ORDERED. SAFETY PRECAUTIONS IN PLACE, BED IN LOWEST LOCKED POSITION, X2 SIDE RAILS UP AND CALL LIGHT WITHIN REACH. WILL CONTINUE TO MONITROR CLOSELY. Addendum: 04/05/18 at 0653 by JUAN SMILEY RN PATIENT HAS IV ACCESS TO LEFT FA # 18, INTACT PATENT. NO IV ACCESS TO RIGHT FA.
[2018-04-04 20:00] VITALS: BP 123/72
[2018-04-05] MEDS: IV NS 0.9% 1,000 ML IV PRN (02:10)
[2018-04-05] MEDS: PIPERACILLIN /TAZOBACTAM 3.375 G in IV D5W 100 ML IV SCH ×3 (04:38→20:07)
--- NOTE | 2018-04-05 06:49 | NUR ---
MS RN CLOSING NOTES PATIENT SLEPT WELL AT NIGHT. PT ALERT AND ORIENTED X3. NO COMPLAINTS OF PAIN VERBALIZED AT NIGHT. NO SOB OR DISTRESS NOTED. CONTINENT/BRP. NO FEVER NOTED THROUGH OUT THE SHIFT. PT HAS IV ACCESS TO LEFT FA #18, INTACT AND PATENT INFUSING WITH IVF ORDERED. SAFETY PRECAUTIONS IN PLACE, BED IN LOWEST LOCKED POSITION, X2 SIDE RAILS UP AND CALL LIGHT WITHIN REACH. WILL ENDORSE TO AM RN FOR CONTINUITY OF CARE.
[2018-04-05 07:11] LABS: BASOPHILS # (AUTO) 0.1 /CMM (0.0-0.2); BASOPHILS % (AUTO) 0.5 % (0.0-2.0); EOSINOPHILS % (AUTO) 0.6 % (0.0-6.0); HEMATOCRIT 36 % (39-51); LYMPHOCYTES # (AUTO) 1.2 /CMM (0.8-4.8); LYMPHOCYTES % (AUTO) 6.3 % (20.0-44.0); MEAN CORPUSCULAR HGB CONC 33 g/dl (31.0-36.0); MEAN CORPUSCULAR VOLUME 94 fL (80-96); MONOCYTES # (AUTO) 1.8 /CMM (0.1-1.30); MONOCYTES % (AUTO) 9.5 % (2.0-12.0); NEUTROPHILS # (AUTO) 15.9 /CMM (1.8-8.9); NEUTROPHILS % (AUTO) 83.1 % (43.0-81.0); PLATELET COUNT (AUTO) 406 /CMM (150-450); RED BLOOD CELL COUNT(AUTO) 3.83 MIL/uL (4.5-6.0); WHITE BLOOD COUNT (AUTO) 19.1 K/uL (4.3-11.0)
[2018-04-05 07:20] LABS: CALCIUM, SERUM 8.1 mg/dL (8.5-10.1); CREATININE 2.1 mg/dL (0.6-1.3); POTASSIUM 4.7 mmol/L (3.5-5.1)
--- NOTE | 2018-04-05 07:25 | NUR ---
MS HAWKINS CLOSING NOTES Report received at bedside. Patient received in bed, awake. Alert and oriented x3, verbally responsive. Denies any pain at the moment. Not in any type of distress. No SOB noted. Safety measures in place. Bed in locked and lowest position with bed alarm on and call light within reach. Will continue to monitor and assess patient Addendum: 04/05/18 at 1634 by JABIER SANTOS RN ERROR - THIS IS AN INITIAL NOTES
[2018-04-05 08:00] VITALS: BP 123/68
[2018-04-05] MEDS: LACTOBACILLUS RHAMNOSUS GG 1 EACH CAP.SPRINK PO SCH ×2 (08:34→16:47)
[2018-04-05] MEDS: ENSURE ENLIVE 237 ML LIQUID (VANILLA) PO SCH ×3 (08:35→16:47)
[2018-04-05] MEDS: ACETAMINOPHEN 325 MG TABLET PO PRN (12:10)
--- NOTE | 2018-04-05 13:25 | NUR ---
MS RN NOTES ID at bedside to assess patient
--- NOTE | 2018-04-05 14:07 | NUR ---
MS RN NOTES [facility] information and scheduled pick ups provided to patient; patient confirmed and verbalized understanding
[2018-04-05] MEDS ORDERED: AZITHROMYCIN 250 MG TABLET PO ONE (14:30)
[2018-04-05 16:00] VITALS: BP 124/79
--- NOTE | 2018-04-05 18:19 | NUR ---
MS RN CLOSING NOTES Patient remained in bed, awake, comfortable. Alert and oriented x3, verbally responsive. Denies any pain at the moment. Not in any type of distress. No SOB noted. Infectious disease ROTOR CASTING MACHINE OPERATOR saw the patient. ID ROTOR CASTING MACHINE OPERATOR aware of fever; tylenol given. Antibiotic treatment given. Scrotum remained with redness and swelling. Awaiting for respiratory sample for culture. Safety measures in place. Bed in locked and lowest position with bed alarm on and call light within reach. Will endorse to oncoming shift nurse
--- NOTE | 2018-04-05 19:30 | NUR ---
MS RN OPENING NOTES RECEIVED PATIENT RESTING IN BED, PT ALERT AND ORIENTED X4. NO COMPLAINTS OF PAIN VERBALIZED AT THIS TIME, NO SOB OR DISTRESS NOTED. CONTINENT/BRP/URINAL USE. HAD EPISODE OF FEVER DURING AM SHIFT, WILL MONITOR CLOSELY FOR WOODROW. PT HAS IV ACCESS TO LEFT FA #18, INTACT AND PATENT, SL. SAFETY PRECAUTIONS IN PLACE, BED IN LOWEST LOCKED POSITION, X2 SIDE RAILS UP AND CALL LIGHT WITHIN REACH. WILL CONTINUE TO MONITOR CLOSELY.
[2018-04-05 20:01] VITALS: BP_SYST 125; BP_DIAS 65; BP_DIAS 69
[2018-04-06] MEDS: PIPERACILLIN /TAZOBACTAM 3.375 G in IV D5W 100 ML IV SCH ×3 (05:21→22:14)
[2018-04-06 06:21] LABS: BASOPHILS # (AUTO) 0.1 /CMM (0.0-0.2); BASOPHILS % (AUTO) 0.5 % (0.0-2.0); EOSINOPHILS % (AUTO) 0.7 % (0.0-6.0); HEMATOCRIT 35 % (39-51); HEMOGLOBIN 11.7 g/dL (13.5-17.5); LYMPHOCYTES # (AUTO) 1.1 /CMM (0.8-4.8); LYMPHOCYTES % (AUTO) 5.2 % (20.0-44.0); MEAN CORPUSCULAR HGB CONC 33 g/dl (31.0-36.0); MEAN CORPUSCULAR VOLUME 93 fL (80-96); MONOCYTES # (AUTO) 1.9 /CMM (0.1-1.30); MONOCYTES % (AUTO) 8.5 % (2.0-12.0); NEUTROPHILS # (AUTO) 18.6 /CMM (1.8-8.9); NEUTROPHILS % (AUTO) 85.1 % (43.0-81.0); PLATELET COUNT (AUTO) 450 /CMM (150-450); RED BLOOD CELL COUNT(AUTO) 3.82 MIL/uL (4.5-6.0); WHITE BLOOD COUNT (AUTO) 21.9 K/uL (4.3-11.0)
[2018-04-06 06:36] LABS: ALBUMIN 1.8 g/dL (3.4-5.0); BILIRUBIN,TOTAL 0.3 mg/dL (0.2-1.0); CALCIUM, SERUM 8.8 mg/dL (8.5-10.1); CREATININE 1.9 mg/dL (0.6-1.3); PHOSPHORUS 5.6 mg/dL (2.5-4.9); POTASSIUM 4.8 mmol/L (3.5-5.1); TOTAL PROTEIN, SERUM 6.6 g/dL (6.4-8.2)
--- NOTE | 2018-04-06 06:50 | NUR ---
MS RN CLOSING NOTES PATIENT SLEPT WELL AT NIGHT. PT ALERT AND ORIENTED X3. NO COMPLAINTS OF PAIN VERBALIZED AT NIGHT. NO SOB OR DISTRESS NOTED. CONTINENT/BRP. NO FEVER NOTED THROUGH OUT THE SHIFT. PT IS UNABLE TO PROVIDE RESPIRATORY SPECIMEN. PT HAS IV ACCESS TO LEFT FA #18, INTACT AND PATENT INFUSING WITH IVF ORDERED. SAFETY PRECAUTIONS IN PLACE, BED IN LOWEST LOCKED POSITION, X2 SIDE RAILS UP AND CALL LIGHT WITHIN REACH. WILL ENDORSE TO AM RN FOR CONTINUITY OF CARE.
[2018-04-06 08:00] VITALS: BP 123/65
--- NOTE | 2018-04-06 08:00 | NUR ---
RN NOTES RECEIVED PATIENT IN THE BED A/O X4. PATIENT STABLE NO ACUTE RESPIRATORY DISTRESS, LUNDS ARE CLEAR DURING AUSCULTATION, UNLABORED. V/S STABLE, REFUSED PAIN AT THIS TIME. SCHEDULED MEDICATION ADMINISTERED. PATIENT HAS STILL EDEMA ON SCROTAL AREA, LABS CONTINUED MONITORING. SEEN BY Dr. MARTÍNEZ. NEEDS ATTENDED AND ANTICIPATED. PATIENT USING BATHROOM, IV ACCESS ON LEFT FA INTACT. NEEDS ATTENDED AND ANTICIPATED, CALL LIGHT WITHIN TO REACH. SAFETY PRECAUTION MAINTAINED ALL THE TIME.
[2018-04-06] MEDS: LACTOBACILLUS RHAMNOSUS GG 1 EACH CAP.SPRINK PO SCH ×2 (08:09→17:34)
[2018-04-06] MEDS: ENSURE ENLIVE 237 ML LIQUID (VANILLA) PO SCH ×3 (08:09→17:34)
[2018-04-06 13:05] VITALS: BP 119/65
[2018-04-06] MEDS: ACETAMINOPHEN 325 MG TABLET PO PRN (13:16)
--- NOTE | 2018-04-06 13:16 | NUR ---
RN NOTES T-101.2, ADMINISTERED TYLENOL 659 MG PO PRN , ALSO APPLIED ICE APPLICANT ON BOTH ARMPITS, AND GROIN AREA. ENCOURAGED TO INCREASE FLUID INTAKE. CALL LIGHT WITHIN TO REACH, CONTINUED MONITORING.
--- NOTE | 2018-04-06 14:30 | NUR ---
RN NOTES T-99.7 AT THIS TIME, SEEN PER ID INSTALLATIONS INSPECTOR ORDER BLOOD CULTURE X2, UA/UC, AND SPUTUM CULTURE, CONTINUED MONITORING.
[2018-04-06 15:36] VITALS: BP 119/67
--- NOTE | 2018-04-06 15:45 | NUR ---
RN NOTES RECHECKED T-100.5 F AT THIS TIME AGAIN, COOLING BATH GIVEN, ALSO APPLIED ICE APPLICANT ON GROIN, AND ARMPITS. TORRES KURTZ PRACTICE ARCHITECT AWARE OF, INFUSING ZYVOX 150 ML/HR ANTIBIOTIC NEW ORDER, CONTINUED MONITORING.
[2018-04-06] MEDS: LINEZOLID RTU BAG 600 MG in PREMIX 1 EA IV SCH ×2 (16:02→20:02)
--- NOTE | 2018-04-06 17:20 | NUR ---
RN NOTES RECHECKED T-99.0 AT THIS TIME, PATIENT STABLE, SCHEDULED MEDICATION ADMINISTERED, PATIENT EATING DINNER, MOTHER NEXT TO THE BED.
--- NOTE | 2018-04-06 18:42 | NUR ---
RN NOTES PATIENT STABLE, RECHECKED T-98.9. SCHEDULED MEDICATION ADMINISTERED. PATIENT REFUSED PAIN AT THIS TIME. FAMILY NEXT TO THE BED. CALL LIGHT WITHIN TO REACH. ENDORSED ONCOMING NURSE FOR PLAN OF CARE.
--- NOTE | 2018-04-06 19:00 | NUR ---
RN OPENING NOTES PT RESTING IN BED. MOTHER AT BEDSIDE. NO COMPLAINTS OF PAIN, SOB OR DISTRESS AT THIS TIME. PT HAS A LEFT FA #18 INTACT AND PATENT. PER DAY SHIFT NURSE STOOL AND SPUTUM STILL NEED TO BE COLLECTED. PATIENT INFORMED FOR THE NEED FOR BOTH. SAFETY PRECAUTIONS IN PLACE, BED IN LOWEST LOCKED POSITION, X2 SIDE RAILS UP AND CALL LIGHT WITHIN REACH. WILL CONTINUE TO MONITOR.
[2018-04-06 20:00] VITALS: BP 130/57
[2018-04-06 20:34] LABS: APPEARANCE,URINE CLEAR (CLEAR); BILIRUBIN,URINE NEGATIVE (NEGATIVE); BLOOD, URINE TRACE-INTA Ery/uL (NEGATIVE); COLOR,URINE YELLOW (YELLOW); KETONES,URINE NEGATIVE (NEGATIVE); LEUKOCYTE ESTERASE ,URINE NEGATIVE (NEGATIVE); NITRITE, URINE NEGATIVE (NEGATIVE); PH,URINE 7.5 (5.0-8.0); PROTEIN,URINE NEGATIVE (NEGATIVE); UGLUCOSE NEGATIVE (NEGATIVE); UROBILINOGEN,URINE 0.2 EU/dL (0.2)
[2018-04-06 20:48] LABS: BACTERIA,URINE None seen /HPF (None Seen); RBC,URINE 0-2 /HPF (0-2); SQUAMOUS EPITHELIAL CELL,UR Few /HPF (None Seen); YEAST,URINE Few /HPF (None Seen)
[2018-04-07] MEDS: PIPERACILLIN /TAZOBACTAM 3.375 G in IV D5W 100 ML IV SCH ×3 (04:33→22:56)
[2018-04-07 06:56] LABS: BASOPHILS # (AUTO) 0.1 /CMM (0.0-0.2); BASOPHILS % (AUTO) 0.3 % (0.0-2.0); EOSINOPHILS % (AUTO) 0.7 % (0.0-6.0); HEMATOCRIT 37 % (39-51); HEMOGLOBIN 12.2 g/dL (13.5-17.5); LYMPHOCYTES # (AUTO) 1.4 /CMM (0.8-4.8); LYMPHOCYTES % (AUTO) 5.5 % (20.0-44.0); MEAN CORPUSCULAR HGB CONC 33 g/dl (31.0-36.0); MEAN CORPUSCULAR VOLUME 94 fL (80-96); MONOCYTES % (AUTO) 7.8 % (2.0-12.0); NEUTROPHILS # (AUTO) 21.7 /CMM (1.8-8.9); NEUTROPHILS % (AUTO) 85.7 % (43.0-81.0); PLATELET COUNT (AUTO) 451 /CMM (150-450); RED BLOOD CELL COUNT(AUTO) 3.91 MIL/uL (4.5-6.0); WHITE BLOOD COUNT (AUTO) 25.3 K/uL (4.3-11.0)
--- NOTE | 2018-04-07 06:56 | NUR ---
RN CLOSING NOTES PT RESTING IN BED. NO COMPLAINTS OF PAIN, SOB OR DISTRESS OVERNIGHT. NO FEVER NOTED. PT HAS A LEFT FA #18 INTACT AND PATENT. STOOL AND SPUTUM STILL NEED TO BE COLLECTED. PATIENT INFORMED FOR THE NEED FOR BOTH. ALL PATIENT NEEDS MET OVERNIGHT. SAFETY PRECAUTIONS IN PLACE, BED IN LOWEST LOCKED POSITION, X2 SIDE RAILS UP AND CALL LIGHT WITHIN REACH. WILL ENDORSE TO DAY SHIFT NURSE FOR CONTINUITY OF CARE.
[2018-04-07 07:02] LABS: CALCIUM, SERUM 8.7 mg/dL (8.5-10.1); CREATININE 1.5 mg/dL (0.6-1.3); POTASSIUM 4.5 mmol/L (3.5-5.1)
[2018-04-07 08:00] VITALS: BP 133/69
--- NOTE | 2018-04-07 08:00 | NUR ---
MS RN AM NOTES PT RESTING IN BED. NO COMPLAINTS OF PAIN, SOB OR DISTRESS. NO FEVER NOTED. PT HAS A LEFT FA #18 INTACT AND PATENT. STOOL AND SPUTUM STILL NEED TO BE COLLECTED. SAFETY PRECAUTIONS IN PLACE, BED IN LOWEST LOCKED POSITION, X2 SIDE RAILS UP AND CALL LIGHT WITHIN REACH.
[2018-04-07] MEDS: LACTOBACILLUS RHAMNOSUS GG 1 EACH CAP.SPRINK PO SCH ×2 (09:00→16:02)
[2018-04-07] MEDS: ENSURE ENLIVE 237 ML LIQUID (VANILLA) PO SCH ×3 (09:30→16:03)
[2018-04-07] MEDS: LINEZOLID RTU BAG 600 MG in PREMIX 1 EA IV SCH ×2 (09:30→20:33)
--- NOTE | 2018-04-07 15:56 | NUR ---
PT HAS FEVER OF 102.4.INFORMED DR EDOUARD WITH ORDERS FOR BLOOD CULTURE.TYLENOL 650 MG PO GIVEN AND COOLING MEASURES RENDERED.
[2018-04-07 16:00] VITALS: BP 129/85
[2018-04-07] MEDS: ACETAMINOPHEN 325 MG TABLET PO PRN (16:02)
--- NOTE | 2018-04-07 17:35 | NUR ---
RECHECKED PT'S TEMP 99.3.PT DENIES ANY PAIN OR DISTRESS.ENCOURAGED INCREASE FLUID INTAKE.
--- NOTE | 2018-04-07 18:28 | NUR ---
PT RESTING IN BED WATCHING TV DENYING ANY PAIN OR DISTRESS.CALL LIGHT PLACED WITHIN REACH.
--- NOTE | 2018-04-07 19:05 | NUR ---
RN MS OPENING NOTES RECEIVED PATIENT IN BED SLEEPING BUT EASILY AROUSABLE, RESPIRATIONS EVEN AND UNLABORED WITH EQUAL RISE AND FALL OF CHEST, DENIES ANY PAIN OR DISCOMFORT AT THIS TIME, URINAL WITHIN PATIENTS REACH, IV SITE TO LEFT FA #18 G INTACT AND PATENT, NO REDNESS, NO INFILTRATION PRESENT, FLUIDS AND TOILETING OFFERED, ORIENTED TO STAFF AND CALL LIGHT KEPT WITHIN REACH, ALL NEEDS ATTENDED AT THIS TIME PATIENT REMAINS COMFORTABLE SAFETY PRECAUTIONS IN PLACE, ALL NEEDS ATTENDED WILL CONTINUE TO MONITOR THROUGH OUT SHIFT.
[2018-04-07 20:00] VITALS: BP 132/70
--- NOTE | 2018-04-07 20:00 | NUR ---
RN MS NOTES PATIENT NOTED WITH ELEVATED TEMPERATURE OF 100.3 REMAINS ALERT AND ORIENTED X3-4, NO S/S OF DISTRESS COOLING MEASURES PROVIDED AT THIS TIME, WILL CONTINUE TO MONITOR.
[2018-04-07 20:37] VITALS: BP 132/70
[2018-04-07 22:26] VITALS: BP 132/70
--- NOTE | 2018-04-07 22:26 | NUR ---
RN MS NOTES TEMPERATURE REASSESSED NOW IS 98.4
--- NOTE | 2018-04-07 22:56 | NUR ---
RN MS NOTES WILL HANG ZOSYN NOW TO RUN FOR 4 HOURS ORDERED, UNABLE TO HANG AT 2100 ZYVOX ATB IV RAN FOR 2 HOURS ORDERED.
[2018-04-08] MEDS: PIPERACILLIN /TAZOBACTAM 3.375 G in IV D5W 100 ML IV SCH ×3 (04:09→21:58)
[2018-04-08 06:07] LABS: BASOPHILS # (AUTO) 0.1 /CMM (0.0-0.2); BASOPHILS % (AUTO) 0.4 % (0.0-2.0); EOSINOPHILS % (AUTO) 0.8 % (0.0-6.0); HEMATOCRIT 36 % (39-51); HEMOGLOBIN 12.1 g/dL (13.5-17.5); LYMPHOCYTES # (AUTO) 1.3 /CMM (0.8-4.8); LYMPHOCYTES % (AUTO) 5.1 % (20.0-44.0); MEAN CORPUSCULAR HGB CONC 34 g/dl (31.0-36.0); MEAN CORPUSCULAR VOLUME 93 fL (80-96); MONOCYTES % (AUTO) 7.9 % (2.0-12.0); NEUTROPHILS # (AUTO) 21.3 /CMM (1.8-8.9); NEUTROPHILS % (AUTO) 85.8 % (43.0-81.0); PLATELET COUNT (AUTO) 467 /CMM (150-450); RED BLOOD CELL COUNT(AUTO) 3.89 MIL/uL (4.5-6.0); WHITE BLOOD COUNT (AUTO) 24.9 K/uL (4.3-11.0)
[2018-04-08 06:23] LABS: ALBUMIN 2.1 g/dL (3.4-5.0); BILIRUBIN,TOTAL 0.4 mg/dL (0.2-1.0); CALCIUM, SERUM 9.3 mg/dL (8.5-10.1); CREATININE 1.8 mg/dL (0.6-1.3); MAGNESIUM 2.1 mg/dL (1.8-2.4); POTASSIUM 4.8 mmol/L (3.5-5.1); TOTAL PROTEIN, SERUM 7.5 g/dL (6.4-8.2)
--- NOTE | 2018-04-08 06:30 | NUR ---
RN MS CLOSING PATIENT IN BED SLEEPING BUT EASILY AWAKENS, RESPIRATIONS EVEN AND UNLABORED WITH EQUAL RISE AND FALL OF CHEST,DENIES ANY PAIN OR DISCOMFORT AT THIS TIME, CURRENTLY IV ATB ZOSYN IS RUNNING SCHEDULED FOR 4 HOURS. IV SITE INTACT AND PATENT, NO REDNESS, NO INFILTRATION PRESENT, REMAINS AFEBRILE AT THIS TIME, SAFETY PRECAUTIONS IN PLACE, CALL LIGHT KEPT WITHIN REACH, MEDICATIONS GIVEN ORDERED, ALL NEEDS ATTENDED, FLUIDS AND URINAL OFFERED, WILL CONTINUE TO MONITOR AND ENDORSE TO NEXT SHIFT.
[2018-04-08 08:00] VITALS: BP 118/65
--- NOTE | 2018-04-08 08:00 | NUR ---
MS RN AM NOTES PT RESTING IN BED. NO COMPLAINTS OF PAIN, SOB OR DISTRESS. NO FEVER NOTED. PT HAS A LEFT FA #18 INTACT AND PATENT.SPUTUM STILL NEED TO BE COLLECTED. SAFETY PRECAUTIONS IN PLACE, BED IN LOWEST LOCKED POSITION, X2 SIDE RAILS UP AND CALL LIGHT WITHIN REACH.
[2018-04-08] MEDS: LACTOBACILLUS RHAMNOSUS GG 1 EACH CAP.SPRINK PO SCH ×2 (09:24→16:36)
[2018-04-08] MEDS: LINEZOLID RTU BAG 600 MG in PREMIX 1 EA IV SCH ×2 (09:24→20:03)
[2018-04-08] MEDS: ENSURE ENLIVE 237 ML LIQUID (VANILLA) PO SCH ×3 (09:24→16:36)
[2018-04-08] MEDS: FLUCONAZOLE IN NS 100 MG in PREMIX 1 EA IV SCH ×2 (11:39)
[2018-04-08 16:00] VITALS: BP 126/65
--- NOTE | 2018-04-08 16:00 | NUR ---
PT HS LOW GRADE FEVER T 101.8.TYLENOL 650 MG PO GIVEN AND COOLING MEASURES RENDERED.WILL MONITOR.
[2018-04-08] MEDS: ACETAMINOPHEN 325 MG TABLET PO PRN (16:36)
--- NOTE | 2018-04-08 18:43 | NUR ---
LATEST TEMP IS 99.3.PT DENIES ANY PAIN OR DISTRESS.PT'S GIRLFRIEND AT BEDSIDE.CALL LIGHT PLACED WITHIN REACH.
--- NOTE | 2018-04-08 19:46 | NUR ---
MS RN NOTES OOB TO THE RESTROOM.GIRLFRIEND AT BEDSIDE.
[2018-04-08 20:00] VITALS: BP 128/75
--- NOTE | 2018-04-08 20:00 | NUR ---
MS RN NOTES ZYVOX 600MG/300ML HUNG EARLY TO INFUSE X 2HOURS VIA IV PUMP,WITH TO FOLLOW ZOSYN 3.375GM IV TO INFUSE AT 2100 FOR 4 HOURS.
[2018-04-09] MEDS: PIPERACILLIN /TAZOBACTAM 3.375 G in IV D5W 100 ML IV SCH ×3 (04:58→22:12)
--- NOTE | 2018-04-09 05:00 | NUR ---
MS RN NOTES DUE MAXINE BRANDT. INSTRUCTED TO COLLECT SPUTUM FOR CULTURE.PATIENT CLAIMED HE'S DRY,STILL UNABLE TO EXPECTORATE.
--- NOTE | 2018-04-09 06:13 | NUR ---
MS RN NOTES ON BED A/O X4,AMBULATORY,DENIES ABDOMINAL PAIN.IV ABX TOLERATED WELL.AFEBRILE THRU OUT SHIFT.IN NO ACUTE DISTRESS.BLOOD CULTURE RESULT,NO GROWTH X 3.CHLAMYDIA C/S STILL PENDING RESULT.WILL ENDORSE TO DAY NURSE FOR WOODROW.
--- NOTE | 2018-04-09 08:00 | NUR ---
MS RN AM NOTES PT RESTING IN BED. NO COMPLAINTS OF PAIN, SOB OR DISTRESS. NO FEVER NOTED. PT HAS A LEFT FA #18 INTACT AND PATENT.SPUTUM STILL NEED TO BE COLLECTED.NO COUGHING OR CONGESTION NOTED. SAFETY PRECAUTIONS IN PLACE, BED IN LOWEST LOCKED POSITION, X2 SIDE RAILS UP AND CALL LIGHT WITHIN REACH.
[2018-04-09 08:06] VITALS: BP 129/79
[2018-04-09] MEDS: LACTOBACILLUS RHAMNOSUS GG 1 EACH CAP.SPRINK PO SCH ×2 (08:43→17:00)
[2018-04-09] MEDS: LINEZOLID RTU BAG 600 MG in PREMIX 1 EA IV SCH ×2 (08:43→20:12)
[2018-04-09 08:48] LABS: BASOPHILS # (AUTO) 0.1 /CMM (0.0-0.2); BASOPHILS % (AUTO) 0.5 % (0.0-2.0); EOSINOPHILS % (AUTO) 0.6 % (0.0-6.0); HEMATOCRIT 36 % (39-51); HEMOGLOBIN 12.2 g/dL (13.5-17.5); LYMPHOCYTES # (AUTO) 1.1 /CMM (0.8-4.8); LYMPHOCYTES % (AUTO) 4.9 % (20.0-44.0); MEAN CORPUSCULAR HGB CONC 34 g/dl (31.0-36.0); MEAN CORPUSCULAR VOLUME 93 fL (80-96); MONOCYTES # (AUTO) 1.5 /CMM (0.1-1.30); MONOCYTES % (AUTO) 6.6 % (2.0-12.0); NEUTROPHILS # (AUTO) 19.7 /CMM (1.8-8.9); NEUTROPHILS % (AUTO) 87.4 % (43.0-81.0); PLATELET COUNT (AUTO) 520 /CMM (150-450); WHITE BLOOD COUNT (AUTO) 22.5 K/uL (4.3-11.0)
[2018-04-09] MEDS: ENSURE ENLIVE 237 ML LIQUID (VANILLA) PO SCH ×3 (09:00→17:00)
[2018-04-09] MEDS: FLUCONAZOLE IN NS 100 MG in PREMIX 1 EA IV SCH ×2 (12:04)
[2018-04-09 16:00] VITALS: BP 132/79
--- NOTE | 2018-04-09 18:10 | NUR ---
PT WATCHING TV AND ATE 100%DINNER DENYING ANY PAIN OR DISTRESS.AFEBRILE.T 98.6.WILL CONTINUE TO MONITOR.CALL LIGHT PLACED WITHIN REACH,
--- NOTE | 2018-04-09 19:30 | NUR ---
MS RN NOTES RECEIVED RESTING COMFORTABLY ON BED,NO SOB,SALINE LOCK LFA INTACT AND PATENT.DENIES PAIN AT THE MOMENT,AMBULATES,CALL LIGHT IN REACH,NEEDS ANTICIPATED.
[2018-04-09 20:47] VITALS: BP 129/75
[2018-04-10] MEDS: PIPERACILLIN /TAZOBACTAM 3.375 G in IV D5W 100 ML IV SCH ×3 (05:00→22:19)
--- NOTE | 2018-04-10 06:12 | NUR ---
MS RN NOTES NO SIGNIFICANT CHANGE IN STATUS.AFEBRILE 98.6,IV ABX TOLERATED WELL.PER ID DR SNIDER,HOLD OFF ANTI FUNGAL MEDICATION.STILL NEED STOOL FOR OB,NO BM LAST NIGHT.JUANCARLOS ABDOMINAL PAIN.CALL LIGHT IN REACH,NEEDS ATTENDED.WILL ENDORSED TO DAY NURSE FOR WOODROW.
--- NOTE | 2018-04-10 07:06 | NUR ---
MS RN NOTES PATIENT IN BED ALERT ORIENTED X 3. NO ACUTE DISTRESS NOTED. BREATHING UNLABORED. NO SOB NOTED. IV ACCESS PATENT AND INTACT, NO REDNESS OR SWELLING NOTED. SAFETY MEASURES IN PLACE. CALL LIGHT WITHIN REACH. WILL CONTINUE TO MONITOR ACCORDINGLY.
[2018-04-10 08:00] VITALS: BP 120/69
[2018-04-10] MEDS: LACTOBACILLUS RHAMNOSUS GG 1 EACH CAP.SPRINK PO SCH ×2 (08:42→17:16)
[2018-04-10] MEDS: ENSURE ENLIVE 237 ML LIQUID (VANILLA) PO SCH ×3 (08:42→17:16)
[2018-04-10] MEDS: LINEZOLID RTU BAG 600 MG in PREMIX 1 EA IV SCH ×2 (09:08→20:17)
--- NOTE | 2018-04-10 10:13 | NUR ---
MS RN NOTES SEEN AND EVALUATED BY DR CARO MARTELL WITH NEW ORDERS MADE, NOTED AND CARRIED OUT.
[2018-04-10 11:12] LABS: BASOPHILS % (AUTO) 0.2 % (0.0-2.0); EOSINOPHILS % (AUTO) 1.1 % (0.0-6.0); HEMATOCRIT 36 % (39-51); HEMOGLOBIN 11.9 g/dL (13.5-17.5); LYMPHOCYTES # (AUTO) 1.2 /CMM (0.8-4.8); LYMPHOCYTES % (AUTO) 6.2 % (20.0-44.0); MEAN CORPUSCULAR HGB CONC 33 g/dl (31.0-36.0); MEAN CORPUSCULAR VOLUME 94 fL (80-96); NEUTROPHILS # (AUTO) 16.6 /CMM (1.8-8.9); NEUTROPHILS % (AUTO) 82.5 % (43.0-81.0); PLATELET COUNT (AUTO) 532 /CMM (150-450); RED BLOOD CELL COUNT(AUTO) 3.83 MIL/uL (4.5-6.0); WHITE BLOOD COUNT (AUTO) 20.1 K/uL (4.3-11.0)
[2018-04-10 11:40] LABS: CALCIUM, SERUM 9.1 mg/dL (8.5-10.1); CREATININE 1.6 mg/dL (0.6-1.3); POTASSIUM 4.1 mmol/L (3.5-5.1)
[2018-04-10 16:00] VITALS: BP 116/78
--- NOTE | 2018-04-10 19:00 | NUR ---
MS RN NOTES PATIENT IN BED ALERT ORIENTED X 3.DENIED ANY PAIN. NO ACUTE DISTRESS NOTED. BREATHING UNLABORED. NO SOB NOTED. IV ACCESS PATENT AND INTACT, NO REDNESS OR SWELLING NOTED.DUE MEDICATIONS GIVEN, NO ASE NOTED. NEEDS ATTENDED AND ANTICIPATED. KEPT CLEAN DRY AND COMFORTABLE.SAFETY MEASURES IN PLACE. CALL LIGHT WITHIN REACH. ENDORSED TO NIGHT NURSE FOR CONTINUITY OF CARE.
--- NOTE | 2018-04-10 19:40 | NUR ---
MS/RN NOTES RECEIVED PT. LYING IN BED. PT. IS AWAKE, ALERT AND ORIENTED X4. BREATHING EVEN AND UNLABORED ON ROOM AIR. NO SOB, RESPIRATORY DISTRESS OR COMPLAINTS OF PAIN NOTED AT THIS TIME. PT. WITH LEFT FOREARM 18 GAUGE IV SALINE LOCK PRESENT, PATENT AND INTACT. BED LOCKED AND IN LOWEST POSITION, SIDE RAILS UP X2, CALL LIGHT WITHIN REACH, WILL CONTINUE TO MONITOR.
[2018-04-10 20:00] VITALS: BP 125/76
[2018-04-11] MEDS: PIPERACILLIN /TAZOBACTAM 3.375 G in IV D5W 100 ML IV SCH ×3 (05:39→22:00)
--- NOTE | 2018-04-11 06:19 | NUR ---
MS/RN NOTES PT. IS LYING IN BED RESTING. BREATHING EVEN AND UNLABORED ON ROOM AIR. NO SOB, RESPIRATORY DISTRESS OR COMPLAINTS OF PAIN NOTED AT THIS TIME. PT. WITH LEFT FOREARM 18 GAUGE IV SALINE LOCK PRESENT, PATENT AND INTACT. ALL PT. NEEDS MET. BED LOCKED AND IN LOWEST POSITION, SIDE RAILS UP X2, CALL LIGHT WITHIN REACH, WILL ENDORSE TO DAYSHIFT NURSE FOR CONTINUITY OF CARE.
[2018-04-11 06:40] LABS: BASOPHILS # (AUTO) 0.2 /CMM (0.0-0.2); BASOPHILS % (AUTO) 0.8 % (0.0-2.0); EOSINOPHILS % (AUTO) 1.2 % (0.0-6.0); HEMATOCRIT 35 % (39-51); HEMOGLOBIN 11.6 g/dL (13.5-17.5); LYMPHOCYTES # (AUTO) 1.3 /CMM (0.8-4.8); LYMPHOCYTES % (AUTO) 7.3 % (20.0-44.0); MEAN CORPUSCULAR HGB CONC 33 g/dl (31.0-36.0); MEAN CORPUSCULAR VOLUME 94 fL (80-96); MONOCYTES # (AUTO) 1.6 /CMM (0.1-1.30); MONOCYTES % (AUTO) 8.7 % (2.0-12.0); PLATELET COUNT (AUTO) 567 /CMM (150-450); RED BLOOD CELL COUNT(AUTO) 3.78 MIL/uL (4.5-6.0); WHITE BLOOD COUNT (AUTO) 18.3 K/uL (4.3-11.0)
[2018-04-11 06:53] LABS: CALCIUM, SERUM 9.6 mg/dL (8.5-10.1); CREATININE 1.5 mg/dL (0.6-1.3); MAGNESIUM 2.1 mg/dL (1.8-2.4); PHOSPHORUS 5.4 mg/dL (2.5-4.9); POTASSIUM 5.2 mmol/L (3.5-5.1)
--- NOTE | 2018-04-11 07:05 | NUR ---
MS RN NOTES PATIENT IN BED ALERT ORIENTED X 3. NO ACUTE DISTRESS NOTED. BREATHING UNLABORED. NO SOB NOTED. DENIED ANY PAIN. IV ACCESS PATENT AND INTACT, NO REDNESS OR SWELLING NOTED. SAFETY MEASURES IN PLACE. CALL LIGHT WITHIN REACH. WILL CONTINUE TO MONITOR ACCORDINGLY.
[2018-04-11 08:00] VITALS: BP 128/76
[2018-04-11] MEDS: ENSURE ENLIVE 237 ML LIQUID (VANILLA) PO SCH ×3 (08:14→17:28)
[2018-04-11] MEDS: LACTOBACILLUS RHAMNOSUS GG 1 EACH CAP.SPRINK PO SCH ×2 (08:14→17:28)
[2018-04-11] MEDS: LINEZOLID RTU BAG 600 MG in PREMIX 1 EA IV SCH ×2 (08:17→20:00)
[2018-04-11] MEDS: ACETAMINOPHEN 325 MG TABLET PO PRN (10:54)
--- NOTE | 2018-04-11 14:30 | NUR ---
MS RN NOTES NOTIFIED DR MARTELL REGARDING LABORATORY RESULT TODAY INCLUDING POTASSIUM AND PHOSPHORUS LEVEL, MD IS AWARE, NO NEW ORDERS MADE AT THIS TIME.
[2018-04-11 16:00] VITALS: BP 124/70
--- NOTE | 2018-04-11 19:00 | NUR ---
MS RN NOTES PATIENT IN BED ALERT ORIENTED X3. NO ACUTE DISTRESS NOTED. BREATHING UNLABORED. NO SOB NOTED. DENIED ANY PAIN AT THIS TIME. IV ACCESS PATENT AND INTACT, NO REDNESS OR SWELLING NOTED. DUE MEDICATIONS GIVEN, NO ASE NOTED. NEEDS ATTENDED AND ANTICIPATED. KEPT CLEAN, DRY AND COMFORTABLE. SAFETY MEASURES IN PLACE. CALL LIGHT WITHIN REACH. ENDORSED TO NIGHT NURSE FOR CONTINUITY OF CARE.
--- NOTE | 2018-04-11 19:05 | NUR ---
RN MS OPENING NOTES RECEIVED PATIENT IN BED SLEEPING BUT EASILY AROUSABLE, RESPIRATIONS EVEN AND UNLABORED WITH EQUAL RISE AND FALL OF CHEST, DENIES ANY PAIN OR DISCOMFORT AT THIS TIME, NO SOB PRESENT, ORIENTED TO STAFF AND CALL LIGHT AND KEPT WITHIN REACH, SAFETY PRECAUTIONS IN PLACE, LOW BED AND LOCKED, URINAL AT BEDSIDE AND OFFERED, IV SITE TO LEFT FA #18G SL INTACT AND PATENT, NO REDNESS , NO INFILTRATION PRESENT, ALL NEEDS ATTENDED AT THIS TIME WILL CONTINUE TO MONITOR AND ATTEND TO NEEDS.
[2018-04-11 20:00] VITALS: BP 128/77
--- NOTE | 2018-04-11 20:00 | NUR ---
RN MS NOTES WILL INFUSE ZYVOX ATB VIA IV AT THIS TIME. WILL RUN FOR 2 HOURS
[2018-04-11 20:44] LABS: APPEARANCE,URINE CLEAR (CLEAR); BILIRUBIN,URINE NEGATIVE (NEGATIVE); BLOOD, URINE NEGATIVE Ery/uL (NEGATIVE); COLOR,URINE YELLOW (YELLOW); KETONES,URINE NEGATIVE (NEGATIVE); LEUKOCYTE ESTERASE ,URINE NEGATIVE (NEGATIVE); NITRITE, URINE NEGATIVE (NEGATIVE); PROTEIN,URINE NEGATIVE (NEGATIVE); UGLUCOSE NEGATIVE (NEGATIVE); UROBILINOGEN,URINE 0.2 EU/dL (0.2)
--- NOTE | 2018-04-11 22:00 | NUR ---
SHRUTHI RoyalTES WILL NOW ADMINISTER ZOSYN ATB VIA IV WILL INFUSE FOR 4 HOURS
[2018-04-12] MEDS: PIPERACILLIN /TAZOBACTAM 3.375 G in IV D5W 100 ML IV SCH ×3 (04:28→21:56)
--- NOTE | 2018-04-12 06:43 | NUR ---
RN MS CLOSING NOTES PATIENT IN BED SLEEPING BUT EASILY AROUSABLE, RESPIRATIONS EVEN AND UNLABORED WITH EQUAL RISE AND FALL OF CHEST, DENIES ANY PAIN OR DISCOMFORT AT THIS TIME, NO SOB PRESENT, CALL LIGHTKEPT WITHIN REACH, SAFETY PRECAUTIONS IN PLACE, LOW BED AND LOCKED, URINAL AT BEDSIDE AND OFFERED,FLUIDS OFFERED IV SITE TO LEFT FA #18G SL INTACT AND PATENT IV ATB ZOSYN IN CURRENTLY INFUSING SCHEDULED FOR 4 HOURS, NO REDNESS , NO INFILTRATION PRESENT, ALL NEEDS ATTENDED AT THIS TIME WILL CONTINUE TO MONITOR AND ENDORSE TO NEXT SHIFT. PATIENT REMAINS AFEBRILE THROUGHOUT SHIFT.
[2018-04-12 07:24] LABS: BASOPHILS # (AUTO) 0.1 /CMM (0.0-0.2); BASOPHILS % (AUTO) 0.6 % (0.0-2.0); EOSINOPHILS % (AUTO) 1.1 % (0.0-6.0); HEMATOCRIT 35 % (39-51); HEMOGLOBIN 11.9 g/dL (13.5-17.5); LYMPHOCYTES # (AUTO) 1.4 /CMM (0.8-4.8); LYMPHOCYTES % (AUTO) 8.5 % (20.0-44.0); MEAN CORPUSCULAR HGB CONC 34 g/dl (31.0-36.0); MEAN CORPUSCULAR VOLUME 93 fL (80-96); MONOCYTES # (AUTO) 1.3 /CMM (0.1-1.30); MONOCYTES % (AUTO) 7.6 % (2.0-12.0); NEUTROPHILS # (AUTO) 13.6 /CMM (1.8-8.9); NEUTROPHILS % (AUTO) 82.2 % (43.0-81.0); PLATELET COUNT (AUTO) 607 /CMM (150-450); RED BLOOD CELL COUNT(AUTO) 3.81 MIL/uL (4.5-6.0); WHITE BLOOD COUNT (AUTO) 16.5 K/uL (4.3-11.0)
--- NOTE | 2018-04-12 07:24 | NUR ---
MS RN NOTES PATIENT RESTING INSIDE ROOM. AWAKE, ALERT AND ORIENTED X 4, VERBALLY RESPONSIVE AND RESPONDS TO VERBAL AND TACTILE STIMULI. BREATHING EVEN AND UNLABORED. NO SOB OR ACUTE DISTRESS. DENIES ANY PAIN OR DISCOMFORT. IV ON LFA, CURRENTLY INFUSING ZOSYN. WILL CONTINUE TO MONITOR. BED LOCKED AND IN LOW POSITION. BILATERAL UPPER SIDE RAILS UP AND LOCKED. CALL LIGHT WITHIN EASY REACH
[2018-04-12 07:47] LABS: CALCIUM, SERUM 9.4 mg/dL (8.5-10.1); CREATININE 1.3 mg/dL (0.6-1.3); PHOSPHORUS 4.8 mg/dL (2.5-4.9); POTASSIUM 4.3 mmol/L (3.5-5.1)
[2018-04-12] MEDS: LACTOBACILLUS RHAMNOSUS GG 1 EACH CAP.SPRINK PO SCH ×2 (08:47→16:01)
[2018-04-12] MEDS: ENSURE ENLIVE 237 ML LIQUID (VANILLA) PO SCH ×3 (08:47→16:01)
[2018-04-12] MEDS: LINEZOLID RTU BAG 600 MG in PREMIX 1 EA IV SCH ×2 (08:48→20:03)
[2018-04-12 16:00] VITALS: BP 136/77
--- NOTE | 2018-04-12 18:45 | NUR ---
MS RN NOTES PATIENT RESTING INSIDE ROOM. AWAKE, ALERT AND ORIENTED X4, VERBALLY RESPONSIVE AND RESPONDS TO VERBAL AND TACTILE STIMULI. BREATHING EVEN AND UNLABORED. DENIES ANY PAIN OR DISCOMFORT. NO CHANGES IN LOC. DENIES ANY PAIN OR DISCOMFORT. PATIENT CALM AND RELAXED. PATIENT KEPT CLEAN, DRY AND COMFORTABLE. ALL NURSING NEEDS ATTENDED AND MET. WILL ENDORSE TO INCOMING SHIFT FOR WOODROW. BED LOCKED AND IN LOW POSITION. BILATERAL UPPER SIDE RAILS UP AND LOCKED. CALL LIGHT WITHIN EASY REACH
--- NOTE | 2018-04-12 19:31 | NUR ---
MS/RN OPENING NOTES RECEIVED PATIENT IN BED, RESTING COMFORTABLY IN BED,RESPIRATIONS EVEN AND UNLABORED, SKIN WARM TO TOUCH, NO GUARDING OR GRIMACE, IV SITE ON LFA GAUGE 18 WITH NO S/S OF INFILTRATION, RECEIVED ENDORSEMENT FROM AM RN FOR WOODROW, OBSERVE RIGHT HAND AND BILATERAL FOOT SELLING WITH SCROTAL SWELLING DX FOR CELLULITIS ON IV ANTIBIOTIC. WILL MONITOR, CALL LIGHTS WITHIN REACH, USES URINAL. ON REGULAR DIET WILL MONITOR, CALL LIGHTS WITHIN REACH, BED LOCKED.
[2018-04-12 19:57] VITALS: BP 127/58
[2018-04-12 20:00] VITALS: BP 127/58
[2018-04-13] MEDS: PIPERACILLIN /TAZOBACTAM 3.375 G in IV D5W 100 ML IV SCH ×3 (05:03→20:00)
--- NOTE | 2018-04-13 06:19 | NUR ---
312-1 MS/RN NOTES PATIENT ALERT,ORIENTED X3, ABLE TO SLEEP DURING THE NIGHT, ON IV ANTIBIOTIC THERAPY, COOPERATIVE AND PARTICIPATIVE TO CARE. OBSERVED SCROTAL SWELLING, WILL MONITOR.CALL LIGHTS WITHIN REACH, BED LOCKED.
--- NOTE | 2018-04-13 07:15 | NUR ---
MS RN OPENING NOTES PATIENT ALERT,ORIENTED X3, ON IV ANTIBIOTIC THERAPY, COOPERATIVE . WILL CONTINUE TO MONITOR MONITOR.CALL LIGHTS WITHIN REACH, SAFETY PRECAUTIONS IN PLACE
[2018-04-13 07:55] LABS: CALCIUM, SERUM 9.2 mg/dL (8.5-10.1); CREATININE 1.3 mg/dL (0.6-1.3); PHOSPHORUS 4.2 mg/dL (2.5-4.9); POTASSIUM 4.3 mmol/L (3.5-5.1)
[2018-04-13 08:00] VITALS: BP 120/77
[2018-04-13 08:02] VITALS: BP 120/77
[2018-04-13 08:03] LABS: BASOPHILS # (AUTO) 0.2 /CMM (0.0-0.2); BASOPHILS % (AUTO) 1.1 % (0.0-2.0); EOSINOPHILS % (AUTO) 1.2 % (0.0-6.0); HEMATOCRIT 35 % (39-51); HEMOGLOBIN 11.5 g/dL (13.5-17.5); LYMPHOCYTES # (AUTO) 1.2 /CMM (0.8-4.8); LYMPHOCYTES % (AUTO) 8.2 % (20.0-44.0); MEAN CORPUSCULAR HGB CONC 33 g/dl (31.0-36.0); MEAN CORPUSCULAR VOLUME 93 fL (80-96); MONOCYTES # (AUTO) 1.2 /CMM (0.1-1.30); MONOCYTES % (AUTO) 7.8 % (2.0-12.0); NEUTROPHILS # (AUTO) 12.1 /CMM (1.8-8.9); NEUTROPHILS % (AUTO) 81.7 % (43.0-81.0); PLATELET COUNT (AUTO) 599 /CMM (150-450); RED BLOOD CELL COUNT(AUTO) 3.74 MIL/uL (4.5-6.0); WHITE BLOOD COUNT (AUTO) 14.9 K/uL (4.3-11.0)
[2018-04-13] MEDS: LINEZOLID RTU BAG 600 MG in PREMIX 1 EA IV SCH ×2 (08:08→21:26)
[2018-04-13] MEDS: LACTOBACILLUS RHAMNOSUS GG 1 EACH CAP.SPRINK PO SCH ×2 (08:08→17:28)
[2018-04-13] MEDS: ENSURE ENLIVE 237 ML LIQUID (VANILLA) PO SCH ×3 (08:08→17:30)
[2018-04-13 16:00] VITALS: BP 125/61
--- NOTE | 2018-04-13 19:15 | NUR ---
MS RN OPENING NOTES: RECEIVED PT ON ROOM AIR AND IS TOLERATING WELL. PT IS A/XO4. NO S/S OF DISTRESS. IV IS INTACT AND CURRENTLY H/L. NO SOB NOTED. BED KEPT IN LOW, LOCKED POSITION, AND SIDE RAILS X 2UP. INSTRUCTED PT TO USE CALL LIGHT FOR ASSISTANCE. WILL CONTINUE TO MONITOR PT.
--- NOTE | 2018-04-13 19:28 | NUR ---
MS RN CLOSING NOTES PATIENT ALERT,ORIENTED X3, ON IV ANTIBIOTIC THERAPY, COOPERATIVE .CALL LIGHTS WITHIN REACH, SAFETY PRECAUTIONS IN PLACE. WILL ENDORSE TO NEXT SHIFT FOR WOODROW.
[2018-04-13 20:00] VITALS: BP 145/85
[2018-04-14] MEDS: PIPERACILLIN /TAZOBACTAM 3.375 G in IV D5W 100 ML IV SCH ×2 (04:00→12:55)
[2018-04-14 06:15] LABS: BASOPHILS # (AUTO) 0.2 /CMM (0.0-0.2); BASOPHILS % (AUTO) 1.3 % (0.0-2.0); EOSINOPHILS % (AUTO) 1.3 % (0.0-6.0); HEMATOCRIT 34 % (39-51); HEMOGLOBIN 11.5 g/dL (13.5-17.5); LYMPHOCYTES # (AUTO) 1.2 /CMM (0.8-4.8); LYMPHOCYTES % (AUTO) 9.3 % (20.0-44.0); MEAN CORPUSCULAR HGB CONC 34 g/dl (31.0-36.0); MEAN CORPUSCULAR VOLUME 93 fL (80-96); MONOCYTES # (AUTO) 1.2 /CMM (0.1-1.30); MONOCYTES % (AUTO) 9.5 % (2.0-12.0); NEUTROPHILS # (AUTO) 9.8 /CMM (1.8-8.9); NEUTROPHILS % (AUTO) 78.6 % (43.0-81.0); PLATELET COUNT (AUTO) 594 /CMM (150-450); RED BLOOD CELL COUNT(AUTO) 3.71 MIL/uL (4.5-6.0); WHITE BLOOD COUNT (AUTO) 12.5 K/uL (4.3-11.0)
[2018-04-14 06:29] LABS: CALCIUM, SERUM 9.2 mg/dL (8.5-10.1); CREATININE 1.1 mg/dL (0.6-1.3); POTASSIUM 4.2 mmol/L (3.5-5.1)
--- NOTE | 2018-04-14 06:56 | NUR ---
MS RN CLOSING NOTES: ALL NEEDS WERE ATTENDED AND ANTICIPATED FOR. PT RESTING COMFORTABLY AT THIS TIME. NO SOB NOTED. NO S/S OF DISTRESS. PT HAS IV AND IS BEING INFUSED WITH ZOSYN 25ML/HR. BED KEPT IN LOW, LOCKED POSITION, AND SIDE RAILS X 2UP. WILL ENDORSE TO AM NURSE FOR WOODROW.
--- NOTE | 2018-04-14 07:35 | NUR ---
MS RN RECEIVED ON BED, AWAKE,ALERT,ORIENTED X4,NOT IN ANY FORM OF DISTRESS, RESPIRATIONS EVEN AND UNLABORED,NO SOB NOTED, LUNGS ARE CLEAR, ABDOMEN SOFT,POSITIVE BOWEL SOUNDS,DENIES PAIN AT THIS TIME,WILL MONITOR PATIENT'S CONDITION.
[2018-04-14 08:00] VITALS: BP 124/74
--- NOTE | 2018-04-14 08:30 | NUR ---
MS HAWKINS BREAKFAST SERVED,DUE MEDS GIVEN,TOLERATED WELL.
[2018-04-14] MEDS: LACTOBACILLUS RHAMNOSUS GG 1 EACH CAP.SPRINK PO SCH (08:45)
[2018-04-14] MEDS: ENSURE ENLIVE 237 ML LIQUID (VANILLA) PO SCH ×2 (08:45→12:55)
[2018-04-14] MEDS: LINEZOLID RTU BAG 600 MG in PREMIX 1 EA IV SCH (08:46)
--- NOTE | 2018-04-14 14:00 | NUR ---
MS HAWKINS WAS SEEN BY MD Mclaughlin/ DISCHARGE ORDER.
[2018-04-14 16:00] VITALS: BP 129/77
--- NOTE | 2018-04-14 16:00 | NUR ---
MS MICROPHONE OPERATOR INSTRUCTIONS GIVEN, PICTURE AT SCROTAL AREA TAKE, REFUSED TO TAKE PICTURES AT BOTH FEET, BECAUSE HE PUT ON HIS SHOES ALREADY,DON'T WANNA TAKE OFF AGAIN.
--- NOTE | 2018-04-14 17:20 | NUR ---
MS RN WENT HOME ACCOMPANIED BY MOM W/ ATB PRESCRIPTION,ALL NEEDS ATTENDED.
== END 2018-04-14 17:00 | disposition home or self-care (01) | DRG 720 ==
LOC: ER 15:08 → MEDSG2 17:48 → MED 04-03 17:48
PROVIDERS: ADMIT Internal Medicine; ATTEND Nurse Practitioner Acute Care
DX: A41.9 Sepsis, unspecified organism (principal); N17.0 Acute kidney failure with tubular necrosis; T18.4XXA Foreign body in colon, initial encounter; E44.1 Mild protein-calorie malnutrition; E87.1 Hypo-osmolality and hyponatremia; B37.49 Other urogenital candidiasis; N45.3 Epididymo-orchitis; N43.3 Hydrocele, unspecified; Z59.0 Homelessness; F12.10 Cannabis abuse, uncomplicated; F15.10 Other stimulant abuse, uncomplicated; F17.210 Nicotine dependence, cigarettes, uncomplicated; D72.829 Elevated white blood cell count, unspecified; E88.09 Other disorders of plasma-protein metabolism, not elsewhere classified; R73.9 Hyperglycemia, unspecified; X58.XXXA Exposure to other specified factors, initial encounter; Y93.9 Activity, unspecified; Y92.9 Unspecified place or not applicable; B96.89 Other specified bacterial agents as the cause of diseases classified elsewhere; A56.19 Other chlamydial genitourinary infection
CPT/HCPCS: 36415; 71045-TC; 71250-TC; 76870-TC; 80048-TC; 80053-TC; 80074; 80076-TC; 80202-TC; 80305; 81000-TC; 83690-TC; 83735-TC; 84100-TC; 85025-TC; 86592; 87040-TC; 87081-TC; 87086-TC; 87110-TC; 87491; 87591; 87806; A4216; A4606; G0378; G0480; J1450; J1885; J1956; J2020; J2543; J3370; J3475; J7030; J7050; J7060; Q9967; Z7610

== ENCOUNTER 2023-05-01 13:59 | Emergency (ER) | payer MEDICAID, OTHER ==
[~2023-05-01] VITALS: Ht 165.1 cm; Wt 63.5 kg
[2023-05-01] MEDS ORDERED: ACETAMINOPHEN ES 500 MG TABLET ONE (14:44)
[2023-05-01] MEDS ORDERED: IBUPROFEN 600 MG TABLET ONE (14:44)
[2023-05-01] MEDS ORDERED: ACETAMINOPHEN ES 500 MG TABLET PO ONE (15:00)
[2023-05-01] MEDS ORDERED: IBUPROFEN 600 MG TABLET PO ONE (15:00)
[2023-05-01] MEDS ORDERED: IBUP-1953 PO (17:15)
[2023-05-01 17:30] VITALS: BP 133/75; TEMP 97.8; O2SAT 97
== END 2023-05-01 17:30 | disposition home or self-care (01) ==
LOC: ER 14:14
DX: S76.012A Strain of muscle, fascia and tendon of left hip, initial encounter (principal); S30.0XXA Contusion of lower back and pelvis, initial encounter; S50.312A Abrasion of left elbow, initial encounter; R51.9 Headache, unspecified; M54.2 Cervicalgia; W22.01XA Walked into wall, initial encounter; Y93.89 Activity, other specified; Y92.89 Other specified places as the place of occurrence of the external cause; Y99.8 Other external cause status
CPT/HCPCS: 70450-TC; 72125-TC; 72131-TC; 72192-TC